=== PATIENT | female | born 1940 | race Caucasian/White ===

== ENCOUNTER 2022-10-15 11:25 | Emergency (ER) | payer MEDICARE ==
[2022-10-15 11:46] VITALS: TEMP 97.8
[2022-10-15] MEDS ORDERED: RX INFO: IV CONTRAST WAS GIVEN 1 EACH MISC MISCELLANE PRN (11:53)
[2022-10-15 13:03] LABS: Albumin 3.9 g/dL (3.5-5.0); Calcium 9.1 mg/dL (8.4-10.2); Potassium 3.2 mmol/L (3.5-5.1); Total Bilirubin 0.4 mg/dL (0.2-1.3); Total Protein 6.5 g/dL (6.3-8.2)
[2022-10-15 13:08] LABS: Basophils # (A) 0.1 k/uL (0-0.2); Basophils % (A) 1 %; Eosinophils # (A) 0.2 k/uL (0-0.7); Eosinophils % (A) 2 %; HCT 32.6 % (34.0-46.0); HGB 10.3 gm/dL (11.4-16.0); Hypochromasia Slight; Lymphocytes # (A) 1.1 k/uL (1.0-4.8); Lymphocytes % (A) 14 %; MCHC 31.6 g/dL (31.0-37.0); MCV 94.8 fL (80.0-100.0); Mean Platelet Volume 8.7; Monocytes # (A) 0.4 k/uL (0-1.0); Monocytes % (A) 5 %; Neutrophils # (A) 6.2 k/uL (1.3-7.7); Neutrophils % (A) 76 %; Platelet Count 198 k/uL (150-450); RBC 3.44 m/uL (3.80-5.40); RDW 13.6 % (11.5-15.5); WBC 8.1 k/uL (3.8-10.6)
--- NOTE | 2022-10-15 14:14 | CT ---
EXAMINATION TYPE: CT chest w con DATE OF EXAM: 10/15/2022 COMPARISON: None HISTORY: Lung Mass CT DLP: 300.3 mGycm Automated exposure control for dose reduction was used. TECHNIQUE: CT scan of the chest is performed with IV Contrast, patient injected with 80 mL of Isovue 300. MIP I mages are created on CT scanner and reviewed. 3D reconstructed images are created on an independent w orkstation and reviewed. FINDINGS: There is an 8 mm ill-defined nodule in the moderate right pleural effusion. There is no pneumothorax. There is a 3.5 cm soft tissue mass in the subcarinal region consistent with an enlarged lymph node. T here is a 2.2 cm mass in the proximal right hilum. There is a 15 mm lymph node anterolateral to the s uperior vena cava. The great vessels chest are normal. The heart is markedly enlarged and there is a moderate pericardial effusion. There is a 19 mm nodule in the left lobe of the thyroid gland. There is no axillary adenopathy. Limited scanning the upper abdomen reveals no gross abnormality. The osseous structures are intact and there is no focal lytic or blastic osseous abnormality. IMPRESSION: 1. 8 mm right upper lobe pulmonary nodule, moderate right pleural effusion, mediastinal and right hil ar adenopathy a combination of which is highly suspicious for malignancy. 2. Moderate pericardial effusion and marked cardiomegaly. 3. 19 mm left thyroid nodule..
[2022-10-15] MEDS ORDERED: ALBUTEROL NEBULIZED 2.5 MG/3 ML INHALATION STA (15:20)
[2022-10-15] MEDS ORDERED: IPRATROPIUM 0.5 MG/2.5 ML NEBU INHALATION STA (15:20)
[2022-10-15] MEDS ORDERED: dexAMETHasone 2 MG TAB PO STA (15:20)
--- NOTE | 2022-10-15 16:05 | ED ---
General Adult HPI - General Chief complaint: Recheck/Abnormal Lab/Rx Stated complaint: Mass on Lung, Sent by PCP Time Seen by Provider: 10/15/22 14:56 Source: patient Mode of arrival: wheelchair Limitations: no limitations - History of Present Illness Initial comments: This is an 81-year-old female with no past medical history presents emergency department because her primary care physician told her to come to the emergency department for a computed tomography scan of her chest as there was no sail finding of a lung mass on chest x-ray earlier in the week. The patient was accompanied by both of her daughters who stated that the patient is hard of hearing and also is a poor historian. Reported that the patient is at mild congestion noted of the last 2 months and was being seen and followed by the primary care physician who did a chest x-ray Tuesday. This chest x-ray showed a mass in the upper lung and it was advised by the primary care physician for the patient to come to the emergency department for a CAT scan of her chest because "it was going to take time to get the chest x-ray and because the weekend it would be a week or 2 before they get results." The patient herself would not be in the emergency department if it was not for the recommendation of the primary care physician. The patient denied of any increased shortness of breath or difficulty in breathing. The patient was resting in bed comfortably without any complaints at this time. The patient denied any fevers and chills. - Related Data Previous Rx's Medication Instructions Recorded Albuterol Inhaler [Ventolin Hfa 1 - 2 puff INHALATION Q6H PRN #1 10/15/22 Inhaler] kit Albuterol Nebulized [Ventolin 5 mg INHALATION Q4H PRN 8 Days 10/15/22 Nebulized] #150 ml dexAMETHasone [Decadron] 10 mg PO ONCE #2.5 tab 10/15/22 Allergies Allergy/AdvReac Type Severity Reaction Status Date / Time No Known Allergies Allergy Verified 10/15/22 11:42 Review of Systems ROS Statement: Those systems with pertinent positive or pertinent negative responses have been documented in the HPI. ROS Other: All systems not noted in ROS Statement are negative. Past Medical History Past Medical History: Hyperlipidemia, Hypertension, Thyroid Disorder History of Any Multi-Drug Resistant Organisms: None Reported Past Surgical History: Back Surgery, Orthopedic Surgery Smoking Status: Former smoker Past Alcohol Use History: None Reported Past Drug Use History: None Reported General Exam Limitations: no limitations General appearance: alert, in no apparent distress Head exam: Present: atraumatic, normocephalic, normal inspection Eye exam: Present: normal appearance, PERRL Pupils: Present: normal accommodation ENT exam: Present: normal exam, normal oropharynx, mucous membranes moist Neck exam: Present: normal inspection, full ROM Respiratory exam: Present: wheezes (Bilateral expiratory wheezes heard with mild rhonchi) Cardiovascular Exam: Present: regular rate, normal rhythm, normal heart sounds GI/Abdominal exam: Present: soft, normal bowel sounds Extremities exam: Present: normal inspection, full ROM Back exam: Present: normal inspection, full ROM Neurological exam: Present: alert, oriented X3, CN II-XII intact Psychiatric exam: Present: normal affect, normal mood Skin exam: Present: warm, dry Course Vital Signs 10/15/22 10/15/22 10/15/22 11:42 14:33 15:35 Temperature 97.8 F Pulse Rate 66 78 80 Respiratory 16 20 20 Rate Blood Pressure 154/68 145/72 O2 Sat by Pulse 98 99 Oximetry 10/15/22 10/15/22 15:53 16:15 Temperature Pulse Rate 84 67 Respiratory 16 Rate Blood Pressure 134/76 O2 Sat by Pulse 96 Oximetry Medical Decision Making - Medical Decision Making The patient was seen and evaluated in the emergency department. Physical exam, the patient was resting in bed comfortably without any pain or complaints. The patient did have her computed tomography scan of the chest ordered in triage and showed a millimeter right upper lobe pulmonary nodule, moderate right pleural effusion, mediastinal and right hilar adenopathy which a combination of which is highly suspicious for malignancy. There was also moderate pericardial effusion and marked cardiomegaly. The patient and her daughters were told these results. Due to the patient's examination on auscultation, the patient did receive a breathing treatment of 10 mg of albuterol, 1 mg of Atrovent and 10 mg of Decadron by mouth. On my reevaluation, the patient had complete resolution of her wheezing and had improvement of her breathing. The patient's daughter as well as the patient were offered admission however stated that they would prefer to be seen as an outpatient and did not want to be admitted to the hospital. The patient stated that she would not of been in the emergency department if it was not for the instructions to come get a computed tomography scan. The patient stated that she did not have any increased work of breathing, shortness of breath or difficulty with exertion. The patient as well as her daughters were given strict return precautions including increasing shortness of breath, difficulty in breathing, weakness as well as any chest pain or palpitations. They were advised that there was increasing fluid in the right lung as well as around the heart and that any change in symptoms would warrant further investigation at admission. They were given follow-up instructions to the oncologist as well as her primary care physician. The patient was also given prescription for albuterol inhaler and refill of her albuterol nebulizer and a second dose of Decadron. Both of the patient's daughters as well as the patient were understanding of these instructions and all their questions were answered appropriately. The patient was discharged home in stable condition with her daughters. - Lab Data Result diagrams: 10/15/22 12:10/15/22 12: Lab Results 10/15/22 10/15/22 Range/Units 12: 12:27 WBC 8.1 (3.8-10.6) k/uL RBC 3.44 L (3.80-5.40) m/uL Hgb 10.3 L (11.4-16.0) gm/dL Hct 32.6 L (34.0-46.0) % MCV 94.8 (80.0-100.0) fL MCH 30.0 (25.0-35.0) pg MCHC 31.6 (31.0-37.0) g/dL RDW 13.6 (11.5-15.5) % Plt Count 198 (150-450) k/uL MPV 8.7 Neutrophils % 76 % Lymphocytes % 14 % Monocytes % 5 % Eosinophils % 2 % Basophils % 1 % Neutrophils # 6.2 (1.3-7.7) k/uL Lymphocytes # 1.1 (1.0-4.8) k/uL Monocytes # 0.4 (0-1.0) k/uL Eosinophils # 0.2 (0-0.7) k/uL Basophils # 0.1 (0-0.2) k/uL Hypochromasia Slight Sodium 142 (137-145) mmol/L Potassium 3.2 L (3.5-5.1) mmol/L Chloride 112 H (98-107) mmol/L Carbon Dioxide 23 (22-30) mmol/L Anion Gap 7 mmol/L BUN 33 H (7-17) mg/dL Creatinine 1.45 H (0.52-1.04) mg/dL Est GFR (CKD-EPI)AfAm 39 (>60 ml/min/1.73 sqM) Est GFR (CKD-EPI)NonAf 34 (>60 ml/min/1.73 sqM) Glucose 85 (74-99) mg/dL Calcium 9.1 (8.4-10.2) mg/dL Total Bilirubin 0.4 (0.2-1.3) mg/dL AST 19 (14-36) U/L ALT 16 (4-34) U/L Alkaline Phosphatase 94 (38-126) U/L Total Protein 6.5 (6.3-8.2) g/dL Albumin 3.9 (3.5-5.0) g/dL Disposition Clinical Impression: Chest mass, Wheezing, Pleural effusion, Pericardial effusion Disposition: HOME SELF-CARE Condition: Stable Instructions (If sedation given, give patient instructions): Pleural Effusion (DC), Pericardial Effusion (ED), Wheezing (ED) Prescriptions: dexAMETHasone [Decadron] 10 mg PO ONCE #2.5 tab Albuterol Inhaler [Ventolin Hfa Inhaler] 1 - 2 puff INHALATION Q6H PRN #1 kit PRN Reason: Shortness Of Breath Or Wheezing Albuterol Nebulized [Ventolin Nebulized] 5 mg INHALATION Q4H PRN 8 Days #150 ml PRN Reason: Shortness Of Breath Or Wheezing Is patient prescribed a controlled substance at d/c from ED?: No Referrals: Norma Hidalgo DO [Primary Care Provider] - 1-2 days Rony Barry MD [STAFF PHYSICIAN] - 1-2 days Time of Disposition: 16:05
[2022-10-15 16:16] VITALS: BP 134/76; PULSE 67; RESP 16
== END 2022-10-15 16:16 | disposition home or self-care (01) ==
LOC: EC 11:25
DX: R22.2 Localized swelling, mass and lump, trunk (principal); I10 Essential (primary) hypertension; Z87.891 Personal history of nicotine dependence
CPT/HCPCS: 36415; 94640; 80053; 85025; 71260; 99285; J8540; Q9967

== ENCOUNTER 2022-10-17 01:38 | Inpatient (IN) | payer MEDICARE ==
[2022-10-17] MEDS ORDERED: SODIUM CHLORIDE 0.9% 1,000 ML IV STA (01:56)
--- NOTE | 2022-10-17 02:00 | ED ---
SOB HPI - General Chief Complaint: Shortness of Breath Stated Complaint: Difficulty Breathing Time Seen by Provider: 10/17/22 01:52 Source: patient, RN notes reviewed, old records reviewed Mode of arrival: ambulatory Limitations: no limitations - History of Present Illness Initial Comments: This is an 81-year-old female DF for evaluation presents today for evaluation regards to shortness of breath severe. Unable to lay down flat. Diagnosed with some fluid in the lungs recently. Patient having increasing apparently fluid on lungs today with increasing wheezing per family. Patient's brought in for evaluation. Lifelong smoker history of dementia unable to provide history MD Complaint: shortness of breath, cough, "asthma attack", anxiety (dementia) -: days(s) Severity: moderate Severity scale (1-10): 7 Quality: dull Consistency: constant Improves With: rest Worsens With: lying flat, exertion, movement Known History Of: COPD, asthma, congestive heart failure Context: recent URI, recent illness, other (recent LungCA) Associated Symptoms: cough, sputum production Treatments Prior to Arrival: oxygen - Related Data Previous Rx's Medication Instructions Recorded Albuterol Inhaler [Ventolin Hfa 1 - 2 puff INHALATION Q6H PRN #1 10/15/22 Inhaler] kit Albuterol Nebulized [Ventolin 5 mg INHALATION Q4H PRN 8 Days 10/15/22 Nebulized] #150 ml dexAMETHasone [Decadron] 10 mg PO ONCE #2.5 tab 10/15/22 Allergies Allergy/AdvReac Type Severity Reaction Status Date / Time No Known Allergies Allergy Verified 10/17/22 01:41 Review of Systems ROS Statement: Those systems with pertinent positive or pertinent negative responses have been documented in the HPI. ROS Other: All systems not noted in ROS Statement are negative. Past Medical History Past Medical History: Dementia, Hearing Disorder / Deafness, Hyperlipidemia, Hypertension, Thyroid Disorder History of Any Multi-Drug Resistant Organisms: None Reported Past Surgical History: Back Surgery, Orthopedic Surgery Past Psychological History: No Psychological Hx Reported Smoking Status: Former smoker Past Alcohol Use History: None Reported Past Drug Use History: None Reported General Exam Limitations: no limitations Course Vital Signs 10/17/22 01:41 Temperature 98.2 F Pulse Rate 62 Respiratory 45 H Rate Blood Pressure 163/80 O2 Sat by Pulse 94 L Oximetry - Reevaluation(s) Reevaluation #1: 10/17/22 03:31 Attic record is reviewed Reevaluation #2: 10/17/22 03:32 Patient symptoms are improving Reevaluation #3: 10/17/22 03:32 Patient family informed of results and questions answered - Consultations Consultation #1: Spoke with sound physicians who agree to admit the patient Medical Decision Making - Medical Decision Making 81 female will be admitted for evaluation, significant symptoms of breathing issues heart issues including CHF COPD and lung cancer - Lab Data Result diagrams: 10/17/22 02:11 10/17/22 02:11 Lab Results 10/17/22 10/17/22 10/17/22 Range/Units 02:11 02:11 02:11 WBC 8.8 (3.8-10.6) k/uL RBC 3.46 L (3.80-5.40) m/uL Hgb 10.4 L (11.4-16.0) gm/dL Hct 32.7 L (34.0-46.0) % MCV 94.6 (80.0-100.0) fL MCH 30.2 (25.0-35.0) pg MCHC 31.9 (31.0-37.0) g/dL RDW 13.2 (11.5-15.5) % Plt Count 183 (150-450) k/uL MPV 8.5 Neutrophils % 82 % Lymphocytes % 7 % Monocytes % 9 % Eosinophils % 1 % Basophils % 0 % Neutrophils # 7.3 (1.3-7.7) k/uL Lymphocytes # 0.6 L (1.0-4.8) k/uL Monocytes # 0.8 (0-1.0) k/uL Eosinophils # 0.1 (0-0.7) k/uL Basophils # 0.0 (0-0.2) k/uL Hypochromasia Slight PT 12.1 H (9.0-12.0) sec INR 1.1 (<1.2) APTT 23.0 (22.0-30.0) sec Sodium 138 (137-145) mmol/L Potassium 3.5 (3.5-5.1) mmol/L Chloride 110 H (98-107) mmol/L Carbon Dioxide 24 (22-30) mmol/L Anion Gap 4 mmol/L BUN 32 H (7-17) mg/dL Creatinine 1.17 H (0.52-1.04) mg/dL Est GFR (CKD-EPI)AfAm 50 (>60 ml/min/1.73 sqM) Est GFR (CKD-EPI)NonAf 44 (>60 ml/min/1.73 sqM) Glucose 98 (74-99) mg/dL Plasma Lactic Acid Frantz (0.7-2.0) mmol/L Calcium 9.2 (8.4-10.2) mg/dL Magnesium 2.5 H (1.6-2.3) mg/dL Total Bilirubin 0.4 (0.2-1.3) mg/dL AST 25 (14-36) U/L ALT 18 (4-34) U/L Alkaline Phosphatase 93 (38-126) U/L Troponin I (0.000-0.034) ng/mL NT-Pro-B Natriuret Pep pg/mL Total Protein 6.8 (6.3-8.2) g/dL Albumin 4.0 (3.5-5.0) g/dL 10/17/22 10/17/22 10/17/22 Range/Units 02:11 02:11 02:55 WBC (3.8-10.6) k/uL RBC (3.80-5.40) m/uL Hgb (11.4-16.0) gm/dL Hct (34.0-46.0) % MCV (80.0-100.0) fL MCH (25.0-35.0) pg MCHC (31.0-37.0) g/dL RDW (11.5-15.5) % Plt Count (150-450) k/uL MPV Neutrophils % % Lymphocytes % % Monocytes % % Eosinophils % % Basophils % % Neutrophils # (1.3-7.7) k/uL Lymphocytes # (1.0-4.8) k/uL Monocytes # (0-1.0) k/uL Eosinophils # (0-0.7) k/uL Basophils # (0-0.2) k/uL Hypochromasia PT (9.0-12.0) sec INR (<1.2) APTT (22.0-30.0) sec Sodium (137-145) mmol/L Potassium (3.5-5.1) mmol/L Chloride (98-107) mmol/L Carbon Dioxide (22-30) mmol/L Anion Gap mmol/L BUN (7-17) mg/dL Creatinine (0.52-1.04) mg/dL Est GFR (CKD-EPI)AfAm (>60 ml/min/1.73 sqM) Est GFR (CKD-EPI)NonAf (>60 ml/min/1.73 sqM) Glucose (74-99) mg/dL Plasma Lactic Acid Frantz 0.8 (0.7-2.0) mmol/L Calcium (8.4-10.2) mg/dL Magnesium (1.6-2.3) mg/dL Total Bilirubin (0.2-1.3) mg/dL AST (14-36) U/L ALT (4-34) U/L Alkaline Phosphatase (38-126) U/L Troponin I <0.012 (0.000-0.034) ng/mL NT-Pro-B Natriuret Pep 8080 pg/mL Total Protein (6.3-8.2) g/dL Albumin (3.5-5.0) g/dL - EKG Data -: EKG Interpreted by Me (EKG is A. fib 77 QRS 89 QTc 408) - Radiology Data Radiology results: report reviewed (Chest x-rays positive for pulmonary edema pleural effusion), image reviewed Disposition Clinical Impression: Congestive heart failure, Acute pulmonary edema, Asthma with acute exacerbation, Acute exacerbation of chronic obstructive pulmonary disease, Pleural effusion, Pericardial effusion, Wheezing Disposition: ADMITTED IP TO THIS HOSP Condition: Fair Is patient prescribed a controlled substance at d/c from ED?: No Referrals: Norma Hidalgo DO [Primary Care Provider] - 1-2 days Time of Disposition: 03:30
[2022-10-17 02:35] LABS: Basophils % (A) 0 %; Eosinophils # (A) 0.1 k/uL (0-0.7); Eosinophils % (A) 1 %; HCT 32.7 % (34.0-46.0); HGB 10.4 gm/dL (11.4-16.0); Hypochromasia Slight; Lymphocytes # (A) 0.6 k/uL (1.0-4.8); Lymphocytes % (A) 7 %; MCH 30.2 pg (25.0-35.0); MCHC 31.9 g/dL (31.0-37.0); MCV 94.6 fL (80.0-100.0); Mean Platelet Volume 8.5; Monocytes # (A) 0.8 k/uL (0-1.0); Monocytes % (A) 9 %; Neutrophils # (A) 7.3 k/uL (1.3-7.7); Neutrophils % (A) 82 %; Platelet Count 183 k/uL (150-450); RBC 3.46 m/uL (3.80-5.40); RDW 13.2 % (11.5-15.5); WBC 8.8 k/uL (3.8-10.6)
[2022-10-17 02:48] LABS: INR 1.1 (<1.2); Prothrombin Time 12.1 sec (9.0-12.0)
--- NOTE | 2022-10-17 02:49 | XR ---
EXAMINATION TYPE: XR chest 1V portable DATE OF EXAM: 10/17/2022 COMPARISON: NONE HISTORY: Cough TECHNIQUE: Single view FINDINGS: Heart is enlarged. There is coarsening of the interstitial markings. There is slight blunti ng of the costophrenic angles. There are no hilar masses. Bony thorax is intact. IMPRESSION: Cardiomegaly and mild pulmonary fibrotic changes. Mild heart failure is also likely.
[2022-10-17 02:53] LABS: Calcium 9.2 mg/dL (8.4-10.2); Magnesium 2.5 mg/dL (1.6-2.3); Total Bilirubin 0.4 mg/dL (0.2-1.3); Total Protein 6.8 g/dL (6.3-8.2)
[2022-10-17 02:57] LABS: Potassium 3.5 mmol/L (3.5-5.1)
[2022-10-17] MEDS ORDERED: IPRATROPIUM-ALBUTEROL 3 ML NEB INHALATION STA (03:25)
[2022-10-17] MEDS: IPRATROPIUM-ALBUTEROL 3 ML NEB INHALATION SCH ×5 (04:04→20:10)
[2022-10-17] MEDS: FUROSEMIDE 10 MG/ML 4 ML VIAL IV SCH ×2 (04:17→15:14)
[2022-10-17] MEDS ORDERED: HEPARIN SODIUM 1,000 UN/ML (10ML VL) IV PRN (08:47)
[2022-10-17] MEDS ORDERED: HEPARIN SODIUM 1,000 UN/ML (10ML VL) IV ONE (08:47)
--- NOTE | 2022-10-17 08:47 | P.CRDCN ---
History of Present Illness History of present illness: HISTORY OF PRESENTING ILLNESS Patient is a pleasant 81-year-old female with history of questionable atrial fibrillation, recent diagnosis of pulmonary nodules and mass. She states she follows with a page makeup system operator at [facility]. She has been having a raspy cough and shortness breath for last 2-3 months. She therefore has undergone workup with prior x-ray showing concern of pulmonary mass and therefore had outpatient CAT scan performed 10/15/2022. CAT scan showed multiple nodules concerning for malignancy. Additionally showed moderate pericardial effusion and pleural effusion. She went home however developed worsening dyspnea and therefore presented back to emergency department. EKG showed atrial fibrillation and patient and grandson unsure if this is something that is chronic. States she may have been on Xarelto in the past. No issues with hematochezia or melena. She was additionally having some heartburn sensation however currently improved. REVIEW OF SYSTEMS At the time of my exam: CONSTITUTIONAL: Denies fever or chills. CARDIOVASCULAR: +chest pain, +shortness of breath, no orthopnea, PND or palpitations. RESPIRATORY: Denies cough. GASTROINTESTINAL: Denies abdominal pain, diarrhea, constipation, nausea or vomiting. MUSCULOSKELETAL: Denies myalgias. NEUROLOGIC: Denies numbness, tingling or weakness. ENDOCRINE: Denies fatigue, weight change, polydipsia or polyurina. GENITOURINARY: Denies burning, hematuria or urgency with micturation. HEMATOLOGIC: Denies history of anemia or bleeding. PHYSICAL EXAMINATION Vital signs reviewed. CONSTITUTIONAL: No apparent distress. HEENT: Head is normocephalic. Pupils are equal, round. Sclerae anicteric. Mucous membranes of the mouth are moist. No JVD. No carotid bruit. CHEST EXAMINATION: Rales and rhonchi throughout HEART EXAMINATION: Regular rate and rhythm. S1, S2 heard. No murmurs, gallops or rub. ABDOMEN: Soft, nontender. Positive bowel sounds. EXTREMITIES: 2+ peripheral pulses, no lower extremity edema and no calf tenderness. NEUROLOGIC EXAMINATION: Patient is awake, alert and oriented x3. ASSESSMENT 1. Acute on chronic respiratory failure 2. Acute on chronic heart failure, unclear systolic versus diastolic 3. Persistent atrial fibrillation, questionable history in the past 4. Pulmonary lymphadenopathy rule out malignancy 5. Pericardial effusion 6. Mild dementia 7. Extremely hard of hearing PLAN Significant amount of respiratory status related to heart failure. Continue with IV Lasix. Check 2-D echo. Monitor ins and outs and creatinine. Patient does have pericardial effusion and possible malignancy and possibility of malignant pericardial effusion. No significant signs or symptoms of tamponade. Start heparin drip for Afib and eventually change to NOAC however patient will likely need biopsy. Further recs to follow. Past Medical History Past Medical History: Dementia, Hearing Disorder / Deafness, Hyperlipidemia, Hypertension, Thyroid Disorder History of Any Multi-Drug Resistant Organisms: None Reported Past Surgical History: Back Surgery, Orthopedic Surgery Past Psychological History: No Psychological Hx Reported Smoking Status: Former smoker Past Alcohol Use History: None Reported Past Drug Use History: None Reported Medications and Allergies Home Medications Medication Instructions Recorded Confirmed Type Albuterol Inhaler [Ventolin Hfa 1 - 2 puff INHALATION Q6H PRN #1 10/15/22 Rx Inhaler] kit Albuterol Nebulized [Ventolin 5 mg INHALATION Q4H PRN 8 Days 10/15/22 Rx Nebulized] #150 ml dexAMETHasone [Decadron] 10 mg PO ONCE #2.5 tab 10/15/22 Rx Allergies Allergy/AdvReac Type Severity Reaction Status Date / Time No Known Allergies Allergy Verified 10/17/22 01:41 Physical Exam Vitals: Vital Signs Temp Pulse Resp BP Pulse Ox 10/17/22 07:44 70 10/17/22 07:30 64 10/17/22 06:45 61 22 151/83 100 10/17/22 04:35 68 10/17/22 04:21 66 18 167/81 100 10/17/22 01:41 98.2 F 62 45 H 163/80 94 L Intake and Output 10/16/22 10/17/22 10/17/22 22:59 06:59 14:59 Output Total 1000 Balance -1000 Output: Urine 1000 Other: Weight 70.307 kg Results 10/17/22 02:11 10/17/22 02:11 Cardiac Enzymes 10/17/22 10/17/22 Range/Units 02:11 02:11 AST 25 (14-36) U/L Troponin I <0.012 (0.000-0.034) ng/mL Coagulation 10/17/22 Range/Units 02:11 PT 12.1 H (9.0-12.0) sec APTT 23.0 (22.0-30.0) sec CBC 10/17/22 Range/Units 02:11 WBC 8.8 (3.8-10.6) k/uL RBC 3.46 L (3.80-5.40) m/uL Hgb 10.4 L (11.4-16.0) gm/dL Hct 32.7 L (34.0-46.0) % Plt Count 183 (150-450) k/uL Comprehensive Metabolic Panel 10/17/22 Range/Units 02:11 Sodium 138 (137-145) mmol/L Potassium 3.5 (3.5-5.1) mmol/L Chloride 110 H (98-107) mmol/L Carbon Dioxide 24 (22-30) mmol/L BUN 32 H (7-17) mg/dL Creatinine 1.17 H (0.52-1.04) mg/dL Glucose 98 (74-99) mg/dL Calcium 9.2 (8.4-10.2) mg/dL AST 25 (14-36) U/L ALT 18 (4-34) U/L Alkaline Phosphatase 93 (38-126) U/L Total Protein 6.8 (6.3-8.2) g/dL Albumin 4.0 (3.5-5.0) g/dL Current Medications Generic Name Dose Route Start Last Admin Trade Name Freq PRN Reason Stop Dose Admin Albuterol/Ipratropium 3 ml 10/17/22 04:00 10/17/22 07:22 Ipratropium-Albuterol 3 Ml Neb INHALATION 3 ml RT-Q4H SARAHY Administration Furosemide 40 mg 10/17/22 03:30 10/17/22 04:17 Furosemide 10 Mg/Ml 4 Ml Vial IV 40 mg Q12H SARAHY Administration Sodium Chloride 1,000 mls @ 130 mls/hr 10/17/22 01:56 10/17/22 04:23 Saline 0.9% IV 10/17/22 09:37 Not Given .Q7H42M STA Intake and Output 10/16/22 10/17/22 10/17/22 22:59 06:59 14:59 Output Total 1000 Balance -1000 Output: Urine 1000 Other: Weight 70.307 kg 10/17/22 02:11 10/17/22 02:11
[2022-10-17] MEDS: HEPARIN SOD,PORK IN 0.45% NACL 25,000 UNIT in 0.45% NACL 1 250ML.BAG IV SCH (09:10)
[2022-10-17] MEDS ORDERED: NALOXONE 0.4 MG/ML 1 ML VIAL IV PRN (12:45)
--- NOTE | 2022-10-17 12:46 | P.CNPUL ---
History of Present Illness Consult date: 10/17/22 Reason for consult: dyspnea, lung mass History of present illness: 81-year-old female patient with known history of dementia. The patient lives with her daughter and son-in-law. The patient has been noted to have progressive worsening in shortness of breath. The patient was having too dyspnea, chest tightness and wheezing. She is an ex-smoker and she quit smoking approximately 6 years ago. She has had several visitation with her primary care physician ultimately she was given a CAT scan of the chest yesterday and the CAT scan showed COPD, small right-sided pleural effusion, small pericardial effusion anteriorly and posteriorly, and there was evidence of a fairly large subcarinal mass with heterogeneous density within the subcarinal opacity. This was measuring around 3.5 cm in size. There was another 2.2 cm mass in the proximal right hilum in addition to that there are other smaller mediastinal lymph nodes. The findings are highly suggestive of primary bronchogenic carcinoma. The patient has a 19 mm left thyroid nodule. At the time of my evaluation, the patient was unable to give me any history. She is having significant impairment in cognitive functions. However, it was obvious that she was actively bronchus spastic and wheezing congested. Her swallow mechanism is adequate. Creatinine was at 1.4 and improved with hydration and is down to 1.1. The white suppository 0.8 with a hemoglobin of 14 and the patient has a proBNP level of 8000, negative troponins, normal liver function tests. No angina. No palpit ation. No chest pain. No other complaints otherwise for now. The patient was found to be in atrial fibrillation also. She hasn't. Hearing. She is currently on IV heparin. In the management of atrial fibrillations per cardiology. She was given Lasix. Review of Systems ROS unobtainable: due to mental status Past Medical History Past Medical History: Atrial Fibrillation, Dementia, Hearing Disorder / Deafness, Hyperlipidemia, Hypertension History of Any Multi-Drug Resistant Organisms: None Reported Past Surgical History: Back Surgery, Orthopedic Surgery Past Anesthesia/Blood Transfusion Reactions: No Reported Reaction Past Psychological History: No Psychological Hx Reported Smoking Status: Former smoker Past Alcohol Use History: None Reported Past Drug Use History: None Reported Medications and Allergies Home Medications Medication Instructions Recorded Confirmed Type Albuterol Inhaler [Ventolin Hfa 1 - 2 puff INHALATION RT-Q6H PRN 10/17/22 10/17/22 History Inhaler] Amoxic-Pot Clav 500-125 mg 1 tab PO TID 10/17/22 10/17/22 History [Augmentin 500-125 mg] Aspirin EC [Ecotrin Low Dose] 81 mg PO DAILY 10/17/22 10/17/22 History Donepezil [Aricept] 5 mg PO DAILY 10/17/22 10/17/22 History Latanoprost [Latanoprost 0.005%] 1 drop BOTH EYES HS 10/17/22 10/17/22 History Methenamine Hippurate 1 gm PO DAILY 10/17/22 10/17/22 History Mirtazapine 15 mg PO HS 10/17/22 10/17/22 History Montelukast [Singulair] 10 mg PO DAILY 10/17/22 10/17/22 History Sertraline [Zoloft] 100 mg PO DAILY 10/17/22 10/17/22 History Simvastatin [Zocor] 20 mg PO HS 10/17/22 10/17/22 History Timolol 0.5% Ophth Soln [Timoptic 1 drop BOTH EYES HS 10/17/22 10/17/22 History 0.5% Ophth Soln] amLODIPine [Norvasc] 7.5 mg PO DAILY 10/17/22 10/17/22 History atenoloL [Tenormin] 50 mg PO DAILY 10/17/22 10/17/22 History predniSONE 10 mg PO DAILY 10/17/22 10/17/22 History Allergies Allergy/AdvReac Type Severity Reaction Status Date / Time No Known Allergies Allergy Verified 10/17/22 11:49 Physical Exam Vitals: Vital Signs Temp Pulse Pulse Resp BP BP Pulse Ox 10/17/22 11:51 99.3 F 69 20 155/85 98 10/17/22 11:35 62 10/17/22 11:25 58 L 10/17/22 09:00 68 20 148/78 98 10/17/22 07:44 70 10/17/22 07:30 64 10/17/22 06:45 61 22 151/83 100 10/17/22 04:35 68 10/17/22 04:21 66 18 167/81 100 10/17/22 01:41 98.2 F 62 45 H 163/80 94 L Intake and Output 10/16/22 10/17/22 10/17/22 22:59 06:59 14:59 Intake Total 50 Output Total 1000 1000 Balance -1000 -950 Intake: Oral 50 Output: Urine 1000 1000 Other: Weight 70.307 kg 70.307 kg CONSTITUTIONAL: No apparent distress. Head exam was generally normal. There was no scleral icterus or corneal arcus. Mucous membranes were moist. HEENT: Head is normocephalic. Pupils are equal, round. Sclerae anicteric. Mucous membranes of the mouth are moist. No JVD. No carotid bruit. CHEST EXAMINATION: Diminished breath sounds along with diffuse expiratory wheezing throughout the lung field bilaterally and the patient is a prolongation of the exhalation phase of breathing HEART EXAMINATION: Irregular rate and rhythm. S1, S2 heard. No murmurs, gallops or rub. ABDOMEN: Soft, nontender. Positive bowel sounds. EXTREMITIES: 2+ peripheral pulses, no lower extremity edema and no calf tenderness. NEUROLOGIC EXAMINATION: Patient is awake, alert and the patient has significant impairment in cognitive functions. She has advanced dementia. She is moving all 4 extremities. Examination of the skin revealed no evidence of significant rashes, suspicious appearing nevi or other concerning lesions. Results - Laboratory Findings CBC and BMP: 10/17/22 02:11 10/17/22 02:11 PT/INR, D-dimer PT 12.1 sec (9.0-12.0) H 10/17/22 02:11 INR 1.1 (<1.2) 10/17/22 02:11 Abnormal lab findings: Abnormal Labs 10/17/22 10/17/22 10/17/22 02:11 02:11 02:11 RBC 3.46 L Hgb 10.4 L Hct 32.7 L Lymphocytes # 0.6 L PT 12.1 H Chloride 110 H BUN 32 H Creatinine 1.17 H Magnesium 2.5 H - Diagnostic Findings Chest x-ray: image reviewed CT scan - chest: image reviewed Assessment and Plan Plan: Acute COPD exacerbation with secondary dyspnea, bronchospasm and wheeze. Rule out viral infection. We'll screen the patient for viral infection including Covid 19, RSV and influenza. The patient has been vaccinated for Covid 19 in the past. No airspace disease Right hilar mass measuring 2.2 cm in addition to a fairly large subcarinal lymph node/mass measuring 3.5 cm in size, highly suggestive of primary bronchogenic cancer of the lung Small right-sided pleural effusion Small to moderate-sized pericardial effusion Shortness of breath secondary to above Chronic smoker and the patient quit smoking approximately 6 years ago Chronic atrial fibrillation Suspect congestion heart failure with an elevated proBNP level, responding to diuretics Acute kidney injury, recovering Advanced dementia with impairment of the cognitive functions. Impaired hearing Hypertension Plan Will optimize his COPD. We'll give the patient DuoNeb about treatments [id number]. We'll start her on IV Solu-Medrol 60 mg every 6 hours. Was started on empiric antibiotic coverage with Levaquin 500 mg by mouth on a daily basis. Also, we'll do the viral screen and check the patient for influenza, RSV and Covid 19 by PCR.. We'll check a sputum Gram stain and culture. Check a pro-calcitonin level. Agree on diuretics for now. Echocardiogram is to follow. In terms of her lung mass, this is highly suggestive for malignancy. This may be diagnosed via bronchoscopy and endobronchial ultrasound. However, it may not change our treatment course specially the patient has advanced dementia. We have not made a final decision whether a biopsy will be worthwhile. Nevertheless, the daughter understands that this is highly suspicious for an underlying cancer. We left the issue of biopsying this mass to a later stage once this patient's overall cardiac and pulmonary status is further analyzed. Cardiology will see the patient. We'll give her an echocardiogram.
--- NOTE | 2022-10-17 13:07 | P.HPIM ---
History of Present Illness H&P Date: 10/17/22 Chief Complaint: sob 81-year-old female with history of dementia, hypertension and depression presented to emergency department because of worsening cough, congestion and rattling of the chest over the past month. History taken from grand son on the bedside, patient unable to provide history due to dementia. She was evaluated in the emergency department a few days ago, had chest CAT scan performed 10/15/2022 and that showed 8 mm nodule in the right upper lobe, moderate right pleural effusion, mediastinal and right hilar adenopathy, moderate pericardial effusion and cardiomegaly. These findings were suspicious for malignancy. According to her grandson at the bedside she has been having worsening nonproductive cough, dyspnea and chills for the past several weeks. She has also been experiencing retrosternal chest burning. No fevers. Grandson also stated that yesterday she had flushed and swollen face which is currently resolved. According to her grandson she had a routine checkup at her [employer] office a few months ago, had a stress test that was negative. She is an ex smoker, quit smoking 7 years ago. Evaluation in the emergency department revealed temperature 99.3, rest of vitals are okay, EKG showed atrial fibrillation, new finding. Labs showed white count 8.8, hemoglobin 10.4, hematocrit 32, platelet count 183, sodium 138, potassium 3.5, chloride 110, bicarbonate 24, BUN 32, creatinine 1.17, glucose 98, troponin negative, LFTs were okay. BNP 8080. Review of Systems Complete review of system performed, pertinent positives per HPI, otherwise negative. Past Medical History Past Medical History: Dementia, Hearing Disorder / Deafness, Hyperlipidemia, Hypertension, Thyroid Disorder History of Any Multi-Drug Resistant Organisms: None Reported Past Surgical History: Back Surgery, Orthopedic Surgery Past Psychological History: No Psychological Hx Reported Smoking Status: Former smoker Past Alcohol Use History: None Reported Past Drug Use History: None Reported Medications and Allergies Home Medications Medication Instructions Recorded Confirmed Type Amoxic-Pot Clav 500-125 mg 1 tab PO TID 10/17/22 10/17/22 History [Augmentin 500-125 mg] Aspirin EC [Ecotrin Low Dose] 81 mg PO DAILY 10/17/22 10/17/22 History Donepezil [Aricept] 5 mg PO DAILY 10/17/22 10/17/22 History Latanoprost [Latanoprost 0.005%] 1 drop BOTH EYES HS 10/17/22 10/17/22 History Montelukast [Singulair] 10 mg PO DAILY 10/17/22 10/17/22 History RX: Albuterol Inhaler [Ventolin 1 - 2 puff INHALATION RT-Q6H PRN 10/17/22 10/17/22 History Hfa Inhaler] RX: Methenamine Hippurate 1 gm PO DAILY 10/17/22 10/17/22 History RX: Mirtazapine 15 mg PO HS 10/17/22 10/17/22 History RX: predniSONE 10 mg PO DAILY 10/17/22 10/17/22 History Sertraline [Zoloft] 100 mg PO DAILY 10/17/22 10/17/22 History Simvastatin [Zocor] 20 mg PO HS 10/17/22 10/17/22 History Timolol 0.5% Ophth Soln [Timoptic 1 drop BOTH EYES HS 10/17/22 10/17/22 History 0.5% Ophth Soln] amLODIPine [Norvasc] 7.5 mg PO DAILY 10/17/22 10/17/22 History atenoloL [Tenormin] 50 mg PO DAILY 10/17/22 10/17/22 History Allergies Allergy/AdvReac Type Severity Reaction Status Date / Time No Known Allergies Allergy Verified 10/17/22 11:49 Physical Exam Vitals: Vital Signs Temp Pulse Resp BP Pulse Ox 10/17/22 09:00 68 20 148/78 98 10/17/22 07:44 70 10/17/22 07:30 64 10/17/22 06:45 61 22 151/83 100 10/17/22 04:35 68 10/17/22 04:21 66 18 167/81 100 10/17/22 01:41 98.2 F 62 45 H 163/80 94 L Intake and Output 10/16/22 10/17/22 10/17/22 22:59 06:59 14:59 Output Total 1000 Balance -1000 Output: Urine 1000 Other: Weight 70.307 kg Constitutional: mild respiratory distress Eyes:Anicteric sclerae, moist conjunctiva, no lid-lag, PERRLA, ENMT: Oropharynx clear, no erythema, exudates. Hard of hearing. Neck: Supple, FROM, no masses, or JVD, No carotid bruits, No thyromegaly Lungs: Audible wheezes and rattling even without stethoscope. Clear to percussion, Normal respiratory effort, no accessory muscle use Cardiovascular: Irregular, No murmurs, gallops, or rubs, No peripheral edema Abdominal: Soft, Nontender, no guarding, rebound or rigidity, Normoactive bowel sounds, No hepatomegaly, No splenomegaly, No palpable mass Skin: Normal temperature, tone, texture, turgor, no induration, No subcutaneous nodules, No rash, lesions, No ulcers Extremities: No digital cyanosis, No clubbing, Pedal pulses intact and symmetrical, Radial pulses intact and symmetrical, No calf tenderness Neuro: General weakness, not focal. Results CBC & Chem 7: 10/17/22 02:11 10/17/22 02:11 Labs: Abnormal Lab Results - Last 24 Hours (Table) 10/17/22 10/17/22 10/17/22 Range/Units 02:11 02:11 02:11 RBC 3.46 L (3.80-5.40) m/uL Hgb 10.4 L (11.4-16.0) gm/dL Hct 32.7 L (34.0-46.0) % Lymphocytes # 0.6 L (1.0-4.8) k/uL PT 12.1 H (9.0-12.0) sec Chloride 110 H (98-107) mmol/L BUN 32 H (7-17) mg/dL Creatinine 1.17 H (0.52-1.04) mg/dL Magnesium 2.5 H (1.6-2.3) mg/dL Assessment and Plan Plan: Acute COPD exacerbation Screen the patient for viral infection including Covid 19, RSV and influenza. Check a sputum Gram stain and culture, procal DuoNeb treatments IV Solu-Medrol 60 mg every 6 hours. Empiric antibiotic coverage with Levaquin 500 mg by mouth on a daily Acute CHF Persistent trial fibrillation Seen by cardiology Started on heparin gtt. Started on diuresis Right hilar mass with mediastinal lymphadenoathy, Lung cancer likely D/w daughter on the phone if she would want to pursue aggressive diagnosis/treatment. Right-sided pleural effusion Pericardial effusion Likely due to malignancy Persistent trial fibrillation Seen by cardiology Started on heparin gtt. Acute kidney injury, Resolving Advanced dementia with impairment of the cognitive functions. Impaired hearing Hypertension Stable resume meds Admit to inpatient expected length of stay more than 2 midnights.
[2022-10-17] MEDS: methylPREDNISolone SOD SUCCI 125 MG/2 ML VIAL IV SCH ×3 (13:20→23:41)
[2022-10-17] MEDS ORDERED: LEVOFLOXACIN 500 MG TAB PO SCH (14:00)
[2022-10-17] MEDS: amLODIPine 2.5 MG TAB PO SCH (15:14)
[2022-10-17] MEDS: HALOPERIDOL LACTATE 5 MG/ML 1 ML VIAL IVP PRN (16:11)
--- NOTE | 2022-10-17 16:34 | P.CONS ---
History of Present Illness - Reason for Consult Consult date: 10/17/22 Lung Cancer - History of Present Illness Mrs Gutierrez is a poor historian who is unable to provide history due to dementia. We were asked to evaluate for likely new diagnosis of lung cancer. CAT scan performed 10/15/2022 and that showed 8 mm nodule in the right upper lobe, moderate right pleural effusion, mediastinal and right hilar adenopathy, moderate pericardial effusion and cardiomegaly. These findings were suspicious for malignancy. She complained of sob and chest burning and this brought her into ER. Review of Systems ROS unobtainable: due to mental status Past Medical History Past Medical History: Dementia, Hearing Disorder / Deafness, Hyperlipidemia, Hypertension, Thyroid Disorder History of Any Multi-Drug Resistant Organisms: None Reported Past Surgical History: Back Surgery, Orthopedic Surgery Past Anesthesia/Blood Transfusion Reactions: No Reported Reaction Past Psychological History: No Psychological Hx Reported Smoking Status: Former smoker Past Alcohol Use History: None Reported Past Drug Use History: None Reported Medications and Allergies Home Medications Medication Instructions Recorded Confirmed Type Albuterol Inhaler [Ventolin Hfa 1 - 2 puff INHALATION RT-Q6H PRN 10/17/2209/22 History Inhaler] Amoxic-Pot Clav 500-125 mg 1 tab PO TID 10/17/22 10/17/22 History [Augmentin 500-125 mg] Aspirin EC [Ecotrin Low Dose] 81 mg PO DAILY 10/17/22 10/17/22 History Donepezil [Aricept] 5 mg PO DAILY 10/17/22 10/17/22 History Latanoprost [Latanoprost 0.005%] 1 drop BOTH EYES HS 10/17/22 10/17/22 History Methenamine Hippurate 1 gm PO DAILY 10/17/22 10/17/22 History Mirtazapine 15 mg PO HS 10/17/22 10/17/22 History Montelukast [Singulair] 10 mg PO DAILY 10/17/22 10/17/22 History Sertraline [Zoloft] 100 mg PO DAILY 10/17/22 10/17/22 History Simvastatin [Zocor] 20 mg PO HS 10/17/22 10/17/22 History Timolol 0.5% Ophth Soln [Timoptic 1 drop BOTH EYES HS 10/17/22 10/17/22 History 0.5% Ophth Soln] amLODIPine [Norvasc] 7.5 mg PO DAILY 10/17/22 10/17/22 History atenoloL [Tenormin] 50 mg PO DAILY 10/17/22 10/17/22 History predniSONE 10 mg PO DAILY 10/17/22 10/17/22 History Allergies Allergy/AdvReac Type Severity Reaction Status Date / Time No Known Allergies Allergy Verified 10/17/22 11:49 Physical Exam Vitals: Vital Signs Temp Pulse Pulse Resp BP BP Pulse Ox 10/17/22 15:11 68 10/17/22 14:58 68 10/17/22 11:51 99.3 F 69 20 155/85 98 10/17/22 11:35 62 10/17/22 11:25 58 L 10/17/22 09:00 68 20 148/78 98 10/17/22 07:44 70 10/17/22 07:30 64 10/17/22 06:45 61 22 151/83 100 10/17/22 04:35 68 10/17/22 04:21 66 18 167/81 100 10/17/22 01:41 98.2 F 62 45 H 163/80 94 L Intake and Output 10/17/22 10/17/22 10/17/22 06:59 14:59 22:59 Intake Total 50 Output Total 1000 1000 Balance -1000 -950 Intake: Oral 50 Output: Urine 1000 1000 Other: Weight 70.307 kg 70.307 kg - Constitutional General appearance: cooperative, disheveled - EENT ENT: NA/AT - Neck Neck: normal ROM - Respiratory Respiratory: bilateral: diminished - Cardiovascular Rhythm: irregularly irregular - Gastrointestinal General gastrointestinal: soft - Integumentary Integumentary: pale - Musculoskeletal Musculoskeletal: generalized weakness Results CBC & Chem 7: 10/17/22 02:11 10/17/22 02:11 Labs: Abnormal Lab Results - Last 24 Hours (Table) 10/17/22 10/17/22 10/17/22 Range/Units 02:11 02:11 02:11 RBC 3.46 L (3.80-5.40) m/uL Hgb 10.4 L (11.4-16.0) gm/dL Hct 32.7 L (34.0-46.0) % Lymphocytes # 0.6 L (1.0-4.8) k/uL PT 12.1 H (9.0-12.0) sec APTT (22.0-30.0) sec Chloride 110 H (98-107) mmol/L BUN 32 H (7-17) mg/dL Creatinine 1.17 H (0.52-1.04) mg/dL Magnesium 2.5 H (1.6-2.3) mg/dL Influenza Type A (PCR) (Not Detectd) 10/17/22 10/17/22 Range/Units 13:25 14:43 RBC (3.80-5.40) m/uL Hgb (11.4-16.0) gm/dL Hct (34.0-46.0) % Lymphocytes # (1.0-4.8) k/uL PT (9.0-12.0) sec APTT 35.7 H (22.0-30.0) sec Chloride (98-107) mmol/L BUN (7-17) mg/dL Creatinine (0.52-1.04) mg/dL Magnesium (1.6-2.3) mg/dL Influenza Type A (PCR) Detected A (Not Detectd) CT scan - chest: report reviewed Assessment and Plan (1) Lung mass Narrative/Plan: Await family and pulmonary decision on moving forward with tissue biopsy for confirmatory diagnosis. At this time Pulmonary is treating COPD and supportive care as well as heparin drip is continued for a fib per cardiology Current Visit: Yes Status: Acute Code(s): R91.8 - OTHER NONSPECIFIC ABNORMAL FINDING OF LUNG FIELD SNOMED Code(s): 077315533 (2) Anemia Narrative/Plan: Will work up in the interim while decisions regarding a confirmed diagnosis are made Current Visit: Yes Status: Acute Code(s): D64.9 - ANEMIA, UNSPECIFIED SNOMED Code(s): 665456226
[2022-10-17] MEDS: LATANOPROST 0.005% OPHTH DROPS 2.5 ML BTL BOTH EYES SCH (19:50)
[2022-10-17] MEDS: ATORVASTATIN 10 MG TAB PO SCH (19:50)
[2022-10-17] MEDS: MIRTAZAPINE 15 MG TAB PO SCH (19:50)
[2022-10-17 21:24] LABS: ABG Base Excess 1.1 mmol/L; ABG HCO3 26 mmol/L (21-25); ABG Oxygen Saturation 96.2 % (94-97); ABG PCO2 40 mmHg (35-45); ABG PH 7.42 (7.35-7.45); ABG PO2 77 mmHg (83-108); ABG TCO2 27 mmol/L (19-24); Allen Test Performed? Yes
[2022-10-17] MEDS: TIMOLOL 0.5% OPHTH DROPS 5 ML BTL BOTH EYES SCH (21:50)
[2022-10-17] MEDS: MELATONIN 5 MG TABLET PO PRN (22:05)
[2022-10-18] MEDS: IPRATROPIUM-ALBUTEROL 3 ML NEB INHALATION SCH ×7 (00:54→22:57)
[2022-10-18] MEDS: FUROSEMIDE 10 MG/ML 4 ML VIAL IV SCH ×2 (03:54→15:11)
[2022-10-18 06:24] LABS: Basophils % (A) 0 %; Eosinophils % (A) 0 %; HCT 36.6 % (34.0-46.0); HGB 11.7 gm/dL (11.4-16.0); Hypochromasia Slight; Lymphocytes # (A) 0.6 k/uL (1.0-4.8); Lymphocytes % (A) 11 %; MCH 30.4 pg (25.0-35.0); MCHC 32.1 g/dL (31.0-37.0); MCV 94.8 fL (80.0-100.0); Mean Platelet Volume 8.9; Monocytes # (A) 0.4 k/uL (0-1.0); Monocytes % (A) 8 %; Neutrophils # (A) 4.3 k/uL (1.3-7.7); Neutrophils % (A) 80 %; Platelet Count 194 k/uL (150-450); RBC 3.86 m/uL (3.80-5.40); RDW 13.1 % (11.5-15.5); WBC 5.4 k/uL (3.8-10.6)
[2022-10-18] MEDS: methylPREDNISolone SOD SUCCI 125 MG/2 ML VIAL IV SCH ×4 (06:34→22:15)
[2022-10-18 06:39] LABS: Albumin 4.3 g/dL (3.5-5.0); Calcium 9.4 mg/dL (8.4-10.2); INR 1.1 (<1.2); Potassium 3.1 mmol/L (3.5-5.1); Prothrombin Time 12.2 sec (9.0-12.0); Total Bilirubin 0.4 mg/dL (0.2-1.3); Total Protein 7.3 g/dL (6.3-8.2)
[2022-10-18 09:04] LABS: % Iron Saturation 5.75 (12.00-45.00); Ferritin 81.3 ng/mL (10.0-291.0)
[2022-10-18 09:31] VITALS: BMI 25.0
[2022-10-18] MEDS: amLODIPine 2.5 MG TAB PO SCH (10:07)
[2022-10-18] MEDS: atenoloL 50 MG TAB PO SCH (10:08)
[2022-10-18] MEDS: ASPIRIN 81 MG PO SCH (10:08)
[2022-10-18] MEDS: DONEPEZIL 5 MG TAB PO SCH (10:08)
[2022-10-18] MEDS: SERTRALINE 100 MG TAB PO SCH (10:08)
[2022-10-18] MEDS: MONTELUKAST 10 MG TAB PO SCH (10:08)
[2022-10-18] MEDS: HEPARIN SOD,PORK IN 0.45% NACL 25,000 UNIT in 0.45% NACL 1 250ML.BAG IV SCH (12:52)
[2022-10-18] MEDS: HALOPERIDOL LACTATE 5 MG/ML 1 ML VIAL IVP PRN (15:11)
[2022-10-18] MEDS: LEVOFLOXACIN 250 MG TAB PO SCH (15:11)
--- NOTE | 2022-10-18 15:32 | P.PN ---
Subjective Progress Note Date: 10/18/22 HISTORY OF PRESENTING ILLNESS Patient is a pleasant 81-year-old female with history of questionable atrial fibrillation, recent diagnosis of pulmonary nodules and mass. She states she follows with a [employer] at [facility]. She has been having a raspy cough and shortness breath for last 2-3 months. She therefore has undergone workup with prior x-ray showing concern of pulmonary mass and therefore had outpatient CAT scan performed 10/15/2022. CAT scan showed multiple nodules concerning for malignancy. Additionally showed moderate pericardial effusion and pleural effusion. She went home however developed worsening dyspnea and therefore presented back to emergency department. EKG showed atrial fibrillation and patient and grandson unsure if this is something that is chronic. States she m ay have been on Xarelto in the past. No issues with hematochezia or melena. She was additionally having some heartburn sensation however currently improved. 10/18 Patient has a sitter at the bedside due to her dementia. She is on Lasix 40 mg every 12 hours which will be transitioned to oral. Echocardiogram is scheduled for today. Heart rate is in the 70s, campus monitor. Potassium 3.1, BUN 35 creatinine 1.32. PHYSICAL EXAMINATION Vital signs reviewed. CONSTITUTIONAL: No apparent distress. HEENT: Head is normocephalic. Pupils are equal, round. Sclerae anicteric. Mucous membranes of the mouth are moist. No JVD. No carotid bruit. CHEST EXAMINATION: Rales and rhonchi throughout HEART EXAMINATION: Regular rate and rhythm. S1, S2 heard. No murmurs, gallops or rub. ABDOMEN: Soft, nontender. Positive bowel sounds. EXTREMITIES: 2+ peripheral pulses, no lower extremity edema and no calf tenderness. NEUROLOGIC EXAMINATION: Patient is awake, alert and oriented x3. ASSESSMENT 1. Acute on chronic respiratory failure 2. Acute on chronic heart failure, unclear systolic versus diastolic 3. Persistent atrial fibrillation, questionable history in the past 4. Pulmonary lymphadenopathy rule out malignancy 5. Pericardial effusion 6. dementia 7. Extremely hard of hearing PLAN Transitioned to IV Lasix to oral 40 mg twice daily, monitor I&O, daily weights, electrolytes and renal function Check 2-D echo. Patient does have pericardial effusion and possible malignancy and possibility of malignant pericardial effusion. No significant signs or symptoms of tamponade. Continue heparin drip for Afib and eventually change to NOAC however patient will likely need biopsy. Further recs to follow. Nurse practitioner note has been reviewed, I agree with documented findings and plan of care. Patient was seen and examined. Objective - Vital Signs Vital signs: Vital Signs Temp 98.4 F 10/18/22 08:45 Pulse 83 10/18/22 08:45 Resp 20 10/18/22 08:45 BP 153/90 10/18/22 08:45 Pulse Ox 93 L 10/18/22 08:45 FiO2 2 10/17/22 20:11 Intake & Output 10/17/22 10/18/22 10/18/22 18:59 06:59 18:59 Intake Total 230.715 65.456 Output Total 1999 700 Balance -1769.285 -684.544 Weight 70.307 kg 70.307 kg Intake: Intake, IV Titration 62.715 65.456 Amount Heparin Sod,Pork in 0.45% 62.715 65.456 NaCl 25,000 unit In 0.45 % NaCl 1 250ml.bag @ 12 UNITS/KG/HR 8.437 mls/hr IV .Q24H [facility] Rx#: [id number] Oral 168 Output: Urine 1999 700 Other: Voiding Method External Catheter External Catheter - Labs CBC & Chem 7: 10/18/22 05:29 10/18/22 05:29 Labs: Abnormal Lab Results - Last 24 Hours (Table) 10/17/22 10/17/22 10/17/22 Range/Units 13:25 14:43 14:43 Lymphocytes # (1.0-4.8) k/uL PT (9.0-12.0) sec APTT 35.7 H (22.0-30.0) sec ABG pO2 (83-108) mmHg ABG HCO3 (21-25) mmol/L ABG Total CO2 (19-24) mmol/L Potassium (3.5-5.1) mmol/L BUN (7-17) mg/dL Creatinine (0.52-1.04) mg/dL Glucose (74-99) mg/dL Iron (50-170) ug/dL % Saturation (12.00-45.00) Procalcitonin 0.38 H (0.02-0.09) ng/mL Influenza Type A (PCR) Detected A (Not Detectd) 10/17/22 10/17/22 10/18/22 Range/Units 21:20 22:14 05:29 Lymphocytes # (1.0-4.8) k/uL PT (9.0-12.0) sec APTT 42.7 H (22.0-30.0) sec ABG pO2 77 L (83-108) mmHg ABG HCO3 26 H (21-25) mmol/L ABG Total CO2 27 H (19-24) mmol/L Potassium 3.1 L (3.5-5.1) mmol/L BUN 35 H (7-17) mg/dL Creatinine 1.32 H (0.52-1.04) mg/dL Glucose 152 H (74-99) mg/dL Iron 22 L (50-170) ug/dL % Saturation 5.75 L (12.00-45.00) Procalcitonin (0.02-0.09) ng/mL Influenza Type A (PCR) (Not Detectd) 10/18/22 10/18/22 Range/Units 05:29 05:29 Lymphocytes # 0.6 L (1.0-4.8) k/uL PT 12.2 H (9.0-12.0) sec APTT 55.0 H (22.0-30.0) sec ABG pO2 (83-108) mmHg ABG HCO3 (21-25) mmol/L ABG Total CO2 (19-24) mmol/L Potassium (3.5-5.1) mmol/L BUN (7-17) mg/dL Creatinine (0.52-1.04) mg/dL Glucose (74-99) mg/dL Iron (50-170) ug/dL % Saturation (12.00-45.00) Procalcitonin (0.02-0.09) ng/mL Influenza Type A (PCR) (Not Detectd)
[2022-10-18] MEDS ORDERED: POTASSIUM CHLORIDE ER 20 MEQ TAB.ER PO STA (16:16)
[2022-10-18] MEDS: FUROSEMIDE 40 MG TAB PO SCH (16:26)
--- NOTE | 2022-10-18 16:26 | P.PN ---
Subjective Progress Note Date: 10/18/22 81-year-old female patient with known history of dementia. The patient lives with her daughter and son-in-law. The patient has been noted to have progressive worsening in shortness of breath. The patient was having too dyspnea, chest tightness and wheezing. She is an ex-smoker and she quit smoking approximately 6 years ago. She has had several visitation with her primary care physician ultimately she was given a CAT scan of the chest yesterday and the CAT scan showed COPD, small right-sided pleural effusion, small pericardial effusion anteriorly and posteriorly, and there was evidence of a fairly large subcarinal mass with heterogeneous density within the subcarinal opacity. This was measuri ng around 3.5 cm in size. There was another 2.2 cm mass in the proximal right hilum in addition to that there are other smaller mediastinal lymph nodes. The findings are highly suggestive of primary bronchogenic carcinoma. The patient has a 19 mm left thyroid nodule. At the time of my evaluation, the patient was unable to give me any history. She is having significant impairment in cognitive functions. However, it was obvious that she was actively bronchus spastic and wheezing congested. Her swallow mechanism is adequate. Creatinine was at 1.4 and improved with hydration and is down to 1.1. The white suppository 0.8 with a hemoglobin of 14 and the patient has a proBNP level of 8000, negative troponins, normal liver function tests. No angina. No palpitation. No chest pain. No other complaints otherwise for now. The patient was found to be in atrial fibrillation also. She hasn't. Hearing. She is currently on IV heparin. In the management of atrial fibrillations per card iology. She was given Lasix. The patient is seen today 10/18/2022 in follow-up on the selective care unit. She is currently resting comfortably in bed. Awake and alert in no acute distress. Alert and oriented times one. Her family is at the bedside. Currently maintaining O2 saturations in the upper 90s on 3 L/m per nasal cannula. Afebrile. Hemodynamically stable. She is continued on DuoNeb inhalations, IV Solu-Medrol. Antibiotics in the form of Levaquin. Currently on a heparin drip. Continues to be diuresed. Remains in a -1.2 L balance. Objective - Vital Signs Vital signs: Vital Signs Temp 97.6 F 10/18/22 15:18 Pulse 78 10/18/22 15:18 Resp 18 10/18/22 15:18 BP 117/66 10/18/22 15:18 Pulse Ox 97 10/18/22 15:18 FiO2 2 10/17/22 20:11 Intake & Output 10/17/22 10/18/22 10/18/22 18:59 06:59 18:59 Intake Total 230.715 65.456 121.829 Output Total 2000 700 1800 Balance -1769.285 -634.544 -1678.171 Weight 70.307 kg 70.307 kg Intake: Intake, IV Titration 62.715 65.456 121.829 Amount Heparin Sod,Pork in 0.45% 62.715 65.456 121.829 NaCl 25,000 unit In 0.45 % NaCl 1 250ml.bag @ 12 UNITS/KG/HR 8.437 mls/hr IV .Q24H [facility] Rx#: [id number] Oral 168 Output: Urine 1999 700 1800 Other: Voiding Method External Catheter External Catheter External Catheter - Exam CONSTITUTIONAL: Alert, oriented times one, 81-year-old female, on 3 L nasal cannula, no apparent distress. Head exam was generally normal. There was no scleral icterus or corneal arcus. Mucous membranes were moist. HEENT: Head is normocephalic. Pupils are equal, round. Sclerae anicteric. Mucous membranes of the mouth are moist. No JVD. No carotid bruit. CHEST EXAMINATION: Diminished breath sounds along with diffuse expiratory wheezing throughout the lung field bilaterally and the patient is a prolongation of the exhalation phase of breathing HEART EXAMINATION: Irregular rate and rhythm. S1, S2 heard. No murmurs, gallops or rub. ABDOMEN: Soft, nontender. Positive bowel sounds. EXTREMITIES: 2+ peripheral pulses, no lower extremity edema and no calf tendern ess. NEUROLOGIC EXAMINATION: Patient is awake, alert and the patient has significant impairment in cognitive functions. She has advanced dementia. She is moving all 4 extremities. Examination of the skin revealed no evidence of significant rashes, suspicious appearing nevi or other concerning lesions. - Labs CBC & Chem 7: 10/18/22 05:29 10/18/22 05:29 Labs: Abnormal Lab Results - Last 24 Hours (Table) 10/17/22 10/17/22 10/17/22 Range/Units 14:43 21:20 22:14 Lymphocytes # (1.0-4.8) k/uL PT (9.0-12.0) sec APTT 42.7 H (22.0-30.0) sec ABG pO2 77 L (83-108) mmHg ABG HCO3 26 H (21-25) mmol/L ABG Total CO2 27 H (19-24) mmol/L Potassium (3.5-5.1) mmol/L BUN (7-17) mg/dL Creatinine (0.52-1.04) mg/dL Glucose (74-99) mg/dL Iron (50-170) ug/dL % Saturation (12.00-45.00) Procalcitonin 0.38 H (0.02-0.09) ng/mL 10/18/22 10/18/22 10/18/22 Range/Units 05:29 05:29 05:29 Lymphocytes # 0.6 L (1.0-4.8) k/uL PT 12.2 H (9.0-12.0) sec APTT 55.0 H (22.0-30.0) sec ABG pO2 (83-108) mmHg ABG HCO3 (21-25) mmol/L ABG Total CO2 (19-24) mmol/L Potassium 3.1 L (3.5-5.1) mmol/L BUN 35 H (7-17) mg/dL Creatinine 1.32 H (0.52-1.04) mg/dL Glucose 152 H (74-99) mg/dL Iron 22 L (50-170) ug/dL % Saturation 5.75 L (12.00-45.00) Procalcitonin (0.02-0.09) ng/mL Assessment and Plan Assessment: Acute COPD exacerbation with secondary dyspnea, bronchospasm and wheeze. Rule out viral infection. We'll screen the patient for viral infection including Covid 19, RSV and influenza. The patient has been vaccinated for Covid 19 in the past. No airspace disease Right hilar mass measuring 2.2 cm in addition to a fairly large subcarinal lymph node/mass measuring 3.5 cm in size, highly suggestive of primary bronchogenic cancer of the lung Small right-sided pleural effusion Small to moderate-sized pericardial effusion Shortness of breath secondary to above Chronic smoker and the patient quit smoking approximately 6 years ago Chronic atrial fibrillation Suspect congestion heart failure with an elevated proBNP level, responding to diuretics Acute kidney injury, recovering Advanced dementia with impairment of the cognitive functions. Impaired hearing Hypertension Plan: The patient was seen and evaluated Medications and labs reviewed Continue to titrate the FiO2 as tolerated Will most likely plan outpatient workup if any regarding the right hilar mass Family is aware and may consider no biopsies and no treatment She is a DO NOT RESUSCITATE/DO NOT INTUBATE CODE STATUS We will continue the current treatment plan for now We will continue to follow I have personally seen and examined the patient, performed the documentation and the assessment and plan as written. Number of minutes spent on the visit: 10.
--- NOTE | 2022-10-18 16:28 | P.PN ---
Subjective Progress Note Date: 10/18/22 Hospital course: Patient is a very pleasant 81-year-old female with a past medical history of hypertension, hyperlipidemia, dementia, and hypothyroidism. She presented to the emergency department on 10/17/22 with a chief complaint of worsening cough, congestion, and "rattling in her chest" over the past month. Information was reportedly obtained from family at bedside at this time, as patient is unable to provide history due to dementia and baseline mentation of A&O 1-2. Patient underwent full evaluation in the emergency department. She was found to test positive for influenza A and upon arrival was in respiratory distress with respiratory rate of 45 and SpO2 of 94% on room air.. Chest x-ray revealing cardiomegaly with mild pulmonary fibrotic changes and concerns for underlying mild heart failure. EKG showing atrial fibrillation with a controlled ventricular rate of 77 bpm. CBC revealed normocytic anemia with hemoglobin of 10.4. ABG revealed compensated respiratory acidosis with pH of 7.42, pO2 of 77, bicarb of 26, and total CO2 of 27. BMP reveals slightly elevated renal function with BUN of 32, creatinine of 1.17, and GFR 44. Troponin was negative at less than 0.012 and pro-BMP 8080. Pro-calcitonin slightly elevated at 0.38. [place] yousuf to new findings of atrial fibrillation with no documented or reported history, patient was started on heparin infusion. Patient was admitted under our services with consultation to cardiology and pulmonology. Physical exam: Patient was seen and evaluated at bedside this morning. Patient resting, easily awoken via verbal stimuli. machinist set up at bedside reports patient had rough night and became agitated with staff. Currently patient calm and cooperative. She remains baseline mentation alert and oriented to self only. Patient denies having any pain or complaints at this time. Vital signs reviewed and stable. General: Nontoxic, no distress and appears stated age. Derm: Skin warm and dry, normal coloration for ethnicity. Head: Atraumatic, normocephalic and symmetric. Eyes: EOMs intact, no lid lag, and anicteric sclera Mouth: no lip lesions, mucus membranes moist Cardiovascular: regular rate and rhythm with normal S1S2, systolic murmur, positive posterior tibial pulses bilaterally, and cap refill < 2 seconds. Lungs: Respirations even, regular, and unlabored on 3 L O2 via nasal cannula.. Lungs diffuse coarse rhonchi bilaterally. diffuse coarse rhonchi bilaterally.Abdominal: soft, nontender to palpation, no guarding, no appreciable organomegaly Ext: ROM intact. No gross muscle atrophy, no edema, no contractures Neuro: Speech clear, face symmetrical with no noted focal neuro deficits. GCS 14. Psych: Alert and oriented to person only. Assessment and Plan of Care: Acute on chronic respiratory failure with hypoxia secondary to COPD exacerbation resulting from influenza A Acute COPD exacerbation Influenza A -Oxygenation to be administered and titrated as needed to maintain SPO2 equal to or greater than 92% -Telemetry monitoring. -Monitor Pulse-oximetry -Duonebs as needed for SOB and/or wheezing -Incentive Spirometry -Steroids: Solu-Medrol -Patient would not benefit from antiviral medications such as Tamiflu as reported symptoms started approximately 3-4 weeks ago. Persistent atrial fibrillation, appears to be new onset atrial fib with a controlled ventricular rate Acute heart failure, unclear type pending echocardiogram completion. Hypertension Hyperlipidemia -Cardiology following, appreciate further recommendations -Telemetry monitoring -ProBNP 8080. -Daily weights -Close monitoring of I's and O's -Cardiac diet -Lasix -Continue cardiac medication regimen with Aspirin, atorvastatin, amlodipine and atenolol -Continuation of heparin infusion pending further recommendations from cardiology. -Continued close monitoring of electrolytes while diuresing. -Echocardiogram Dementia -Provide safe and supportive care with redirection and assistance as needed. -Continue daily medication regimen with Aricept. CODE STATUS: DO NOT RESUSCITATE/DO NOT INTUBATE DVT prophylaxis: Heparin infusion Discussed with: Patient, RN, and chief security and safety officer at bedside Anticipated discharge date: Clinical course to determine Anticipated discharge place: Return home with daughter A total of 35 minutes was spent on the care of this complex patient more than 50% of the time was spent in counseling and care coordination. Jan Porter NP rendered care for this patient independently, reviewed the findings and plan as documented in the note above. I did not physically speak with or examine the patient on this date. Objective - Vital Signs Vital signs: Vital Signs Temp 97.6 F 10/18/22 15:18 Pulse 78 10/18/22 15:18 Resp 18 10/18/22 15:18 BP 117/66 10/18/22 15:18 Pulse Ox 97 10/18/22 15:18 FiO2 2 10/17/22 20:11 Intake & Output 10/17/22 10/18/22 10/18/22 18:59 06:59 18:59 Intake Total 230.715 65.456 121.829 Output Total 1999 700 1800 Balance -1769.285 -634.544 -1678.171 Weight 70.307 kg 70.307 kg Intake: Intake, IV Titration 62.715 65.456 121.829 Amount Heparin Sod,Pork in 0.45% 62.715 65.456 121.829 NaCl 25,000 unit In 0.45 % NaCl 1 250ml.bag @ 12 UNITS/KG/HR 8.437 mls/hr IV .Q24H [facility] Rx#: [id number] Oral 168 Output: Urine 1999 700 1800 Other: Voiding Method External Catheter External Catheter External Catheter - Labs CBC & Chem 7: 10/18/22 05:29 10/18/22 05:29 Labs: Abnormal Lab Results - Last 24 Hours (Table) 10/17/22 10/17/22 10/17/22 Range/Units 14:43 21:20 22:14 Lymphocytes # (1.0-4.8) k/uL PT (9.0-12.0) sec APTT 42.7 H (22.0-30.0) sec ABG pO2 77 L (83-108) mmHg ABG HCO3 26 H (21-25) mmol/L ABG Total CO2 27 H (19-24) mmol/L Potassium (3.5-5.1) mmol/L BUN (7-17) mg/dL Creatinine (0.52-1.04) mg/dL Glucose (74-99) mg/dL Iron (50-170) ug/dL % Saturation (12.00-45.00) Procalcitonin 0.38 H (0.02-0.09) ng/mL 10/18/22 10/18/22 10/18/22 Range/Units 05:29 05:29 05:29 Lymphocytes # 0.6 L (1.0-4.8) k/uL PT 12.2 H (9.0-12.0) sec APTT 55.0 H (22.0-30.0) sec ABG pO2 (83-108) mmHg ABG HCO3 (21-25) mmol/L ABG Total CO2 (19-24) mmol/L Potassium 3.1 L (3.5-5.1) mmol/L BUN 35 H (7-17) mg/dL Creatinine 1.32 H (0.52-1.04) mg/dL Glucose 152 H (74-99) mg/dL Iron 22 L (50-170) ug/dL % Saturation 5.75 L (12.00-45.00) Procalcitonin (0.02-0.09) ng/mL
[2022-10-18] MEDS: MIRTAZAPINE 15 MG TAB PO SCH (20:24)
[2022-10-18] MEDS: ATORVASTATIN 10 MG TAB PO SCH (20:24)
[2022-10-18] MEDS: TIMOLOL 0.5% OPHTH DROPS 5 ML BTL BOTH EYES SCH (20:25)
[2022-10-19] MEDS: IPRATROPIUM-ALBUTEROL 3 ML NEB INHALATION SCH ×6 (03:20→23:42)
[2022-10-19] MEDS: methylPREDNISolone SOD SUCCI 125 MG/2 ML VIAL IV SCH ×3 (05:58→18:04)
[2022-10-19 06:12] LABS: Glucose,Whole Blood 135 mg/dL (70-110)
[2022-10-19 09:19] LABS: HCT 39.1 % (34.0-46.0); HGB 12.2 gm/dL (11.4-16.0); Hypochromasia Moderate; MCH 29.9 pg (25.0-35.0); MCHC 31.3 g/dL (31.0-37.0); MCV 95.5 fL (80.0-100.0); Mean Platelet Volume 8.7; Platelet Count 202 k/uL (150-450); RDW 12.9 % (11.5-15.5); WBC 6.6 k/uL (3.8-10.6)
[2022-10-19] MEDS: INSULIN ASPART (NovoLOG) 100 UNIT/ML VIAL SQ SCH ×4 (09:22→21:37)
[2022-10-19] MEDS: SERTRALINE 100 MG TAB PO SCH (09:28)
[2022-10-19] MEDS: atenoloL 50 MG TAB PO SCH (09:28)
[2022-10-19] MEDS: MONTELUKAST 10 MG TAB PO SCH (09:28)
[2022-10-19] MEDS: ASPIRIN 81 MG PO SCH (09:28)
[2022-10-19] MEDS: amLODIPine 2.5 MG TAB PO SCH (09:28)
[2022-10-19] MEDS: FUROSEMIDE 40 MG TAB PO SCH ×2 (09:28→18:04)
[2022-10-19] MEDS: DONEPEZIL 5 MG TAB PO SCH (09:35)
[2022-10-19 09:42] LABS: Albumin 4.2 g/dL (3.5-5.0); Calcium 9.8 mg/dL (8.4-10.2); Magnesium 2.4 mg/dL (1.6-2.3); Potassium 4.1 mmol/L (3.5-5.1); Total Bilirubin 0.4 mg/dL (0.2-1.3); Total Protein 7.2 g/dL (6.3-8.2)
[2022-10-19 11:59] LABS: Glucose,Whole Blood 139 mg/dL (70-110)
[2022-10-19] MEDS: LEVOFLOXACIN 250 MG TAB PO SCH (12:19)
--- NOTE | 2022-10-19 12:27 | CA ---
Transthoracic Echo Report Name: Rose Marie Gutierrez Age: 81 Gender: F : 1940 Exam Date: 10/19/2022 07:43 Exam Location: [place] [facility] Ht (in): 66 Wt (lb): 155 Ordering Physician: Harley Almendarez DO Attending/Referring Phys: [id number], [place] Meeting Facilitator Medina Oquendo RDCS Procedure CPT: Indications: Heart failure Cardiac Hx: Technical Quality: Fair Contrast 1: Total Dose (mL): Contrast 2: Total Dose (mL): MEASUREMENTS (Male / Female) Normal Values 2D ECHO LV Diastolic Diameter PLAX 4.5 cm 4.2 - 5.9 / 3.9 - 5.3 cm LV Systolic Diameter PLAX 2.4 cm IVS Diastolic Thickness 1.3 cm 0.6 - 1.0 / 0.6 - 0.9 cm LVPW Diastolic Thickness 1.5 cm 0.6 - 1.0 / 0.6 - 0.9 cm LV Relative Wall Thickness 0.6 RV Internal Dim ED PLAX 3.0 cm LVOT Diameter 2.0 cm LA Systolic Diameter LX 4.3 cm 3.0 - 4.0 / 2.7 - 3.8 cm LV Diastolic Volume MOD 4C 94.6 cm??? LV Systolic Volume MOD 4C 51.3 cm??? LV Ejection Fraction MOD 4C 45.7 % LV Diastolic Length 4C 6.6 cm LV Systolic Length 4C 6.1 cm LV Diastolic Volume MOD 2C 55.0 cm??? LV Systolic Volume MOD 2C 17.3 cm??? LV Ejection Fraction MOD 2C 68.6 % LV Diastolic Length 2C 6.6 cm LV Systolic Length 2C 5.6 cm LA Volume 53.0 cm??? 18 - 58 / 22 - 52 cm??? M-MODE Aortic Root Diameter MM 3.1 cm MV E Point Septal Separation 0.3 cm AV Cusp Separation MM 1.2 cm DOPPLER AV Peak Velocity 239.4 cm/s AV Peak Gradient 22.9 mmHg AV Mean Velocity 138.4 cm/s AV Mean Gradient 9.4 mmHg AV Velocity Time Integral 43.1 cm LVOT Peak Velocity 154.0 cm/s LVOT Peak Gradient 9.5 mmHg AV Area Cont Eq pk 2.1 cm??? MV Area PHT 4.4 cm??? MV Deceleration Time 175.5 ms TR Peak Velocity 276.5 cm/s TR Peak Gradient 30.6 mmHg Right Ventricular Systolic Press 34.8 mmHg FINDINGS Left Ventricle Left ventricular ejection fraction is estimated at 55 %. Left ventricular cavity size normal. Moderate concentric left ventricular hypertrophy. Right Ventricle Normal right ventricular size. Mild pulmonary hypertension. Right Atrium Normal right atrial size. Left Atrium Mildly increased left atrial diameter. No evidence for an atrial septal defect. Mitral Valve Mitral valve thickened. Mitral annular calcification. Mild mitral regurgitation. Aortic Valve Trileaflet aortic valve. Moderate Aortic valve sclerosis. Mild aortic stenosis with a peak gradient of 23 mmHg and a mean gradient of 9 mmHg. Tricuspid Valve Structurally normal tricuspid valve. Mild tricuspid regurgitation. Pulmonic Valve Structurally normal pulmonic valve. Mild pulmonic regurgitation. Pericardium Normal pericardium. No pericardial effusion. Aorta Normal size aortic root and proximal ascending aorta. CONCLUSIONS Normal LV size and systolic function. Aortic valve sclerosis with mitral annular calcification mild mitral regurgitation no significant pulmonary hypertension. No pericardial effusion. No significant gradient across aortic valve, probably mild stenosis if any Previewed by: Dr. Alton Arora MD (Electronically Signed) Final Date: 19 October 2022 12:26
--- NOTE | 2022-10-19 14:33 | P.PN ---
Subjective Progress Note Date: 10/19/22 HISTORY OF PRESENTING ILLNESS Patient is a pleasant 81-year-old female with history of questionable atrial fibrillation, recent diagnosis of pulmonary nodules and mass. She states she follows with a cargo surveyor at [facility]. She has been having a raspy cough and shortness breath for last 2-3 months. She therefore has undergone workup with prior x-ray showing concern of pulmonary mass and therefore had outpatient CAT scan performed 10/15/2022. CAT scan showed multiple nodules concerning for malignancy. Additionally showed moderate pericardial effusion and pleural effusion. She went home however developed worsening dyspnea and therefore presented back to emergency department. EKG showed atrial fibrillation and patient and grandson unsure if this is something that is chronic. States she m ay have been on Xarelto in the past. No issues with hematochezia or melena. She was additionally having some heartburn sensation however currently improved. 10/18 Patient has a sitter at the bedside due to her dementia. She is on Lasix 40 mg every 12 hours which will be transitioned to oral. Echocardiogram is scheduled for today. Heart rate is in the 70s, secured entrance monitor. Potassium 3.1, BUN 35 creatinine 1.32. 10/19 Patient remains with a sitter at the bedside secondary to her underlying dementia. Echocardiogram has been done this morning but report is pending. She is on oral Lasix. court recording monitor is atrial fibrillation with controlled rate. Heparin drip will be discontinued and patient will be started on eliquis 2.5 mg twice daily. PHYSICAL EXAMINATION Vital signs reviewed. CONSTITUTIONAL: No apparent distress. HEENT: Head is normocephalic. Pupils are equal, round. Sclerae anicteric. Mucous membranes of the mouth are moist. No JVD. No carotid bruit. CHEST EXAMINATION: Rales and rhonchi throughout HEART EXAMINATION: Regular rate and rhythm. S1, S2 heard. No murmurs, gallops or rub. ABDOMEN: Soft, nontender. Positive bowel sounds. EXTREMITIES: 2+ peripheral pulses, no lower extremity edema and no calf tenderness. NEUROLOGIC EXAMINATION: Patient is awake, alert and oriented x3. ASSESSMENT 1. Acute on chronic respiratory failure 2. Acute on chronic heart failure, unclear systolic versus diastolic 3. Persistent atrial fibrillation, questionable history in the past 4. Pulmonary lymphadenopathy rule out malignancy 5. Pericardial effusion 6. dementia 7. Extremely hard of hearing PLAN Continue Lasix oral 40 mg twice daily, monitor I&O, daily weights, electrolytes and renal function Check 2-D echo, report is pending. Patient does have pericardial effusion and possible malignancy and possibility of malignant pericardial effusion. No significant signs or symptoms of tamponade. Transition patient to eliquis, off heparin, if patient is not having biopsy performed. Patient's nurse will follow up regarding this. Nurse practitioner note has been reviewed, I agree with documented findings and plan of care. Patient was seen and examined. Objective - Vital Signs Vital signs: Vital Signs Temp 98.0 F 10/19/22 04:00 Pulse 76 10/19/22 11:34 Resp 16 10/19/22 08:00 BP 137/80 10/19/22 08:00 Pulse Ox 99 10/19/22 08:00 FiO2 2 10/17/22 20:11 Intake & Output 10/18/22 10/19/22 10/19/22 18:59 06:59 18:59 Intake Total 121.829 Output Total 1800 Balance -1678.171 Weight 70.307 kg Intake: Intake, IV Titration 121.829 Amount Heparin Sod,Pork in 0.45% 121.829 NaCl 25,000 unit In 0.45 % NaCl 1 250ml.bag @ 12 UNITS/KG/HR 8.437 mls/hr IV .Q24H [facility] Rx#: [id number] Output: Urine 1800 Other: Voiding Method External Catheter External Catheter External Catheter - Labs CBC & Chem 7: 10/19/22 08:34 10/19/22 08:34 Labs: Abnormal Lab Results - Last 24 Hours (Table) 10/19/22 10/19/22 Range/Units 06:10 08:34 BUN 46 H (7-17) mg/dL Creatinine 1.59 H (0.52-1.04) mg/dL Glucose 117 H (74-99) mg/dL POC Glucose (mg/dL) 135 H (70-110) mg/dL Magnesium 2.4 H (1.6-2.3) mg/dL
--- NOTE | 2022-10-19 15:07 | P.PN ---
Subjective Progress Note Date: 10/19/22 Principal diagnosis: Acute exacerbation of COPD 81-year-old female patient with known history of dementia. The patient lives with her daughter and son-in-law. The patient has been noted to have progressive worsening in shortness of breath. The patient was having too dyspnea, chest tightness and wheezing. She is an ex-smoker and she quit smoking approximately 6 years ago. She has had several visitation with her primary care physician ultimately she was given a CAT scan of the chest yesterday and the CAT scan showed COPD, small right-sided pleural effusion, small pericardial effusion anteriorly and posteriorly, and there was evidence of a fairly large subcarinal mass with heterogeneous density within the subcarinal opacity. This was measuring around 3.5 cm in size. There was another 2.2 cm mass in the proximal right hilum in addition to that there are other smaller mediastinal lymph nodes. The findings are highly suggestive of primary bronchogenic carcinoma. The patient has a 19 mm left thyroid nodule. At the time of my evaluation, the patient was unable to give me any history. She is having significant impairment in cognitive functions. However, it was obvious that she was actively bronchus spastic and wheezing congested. Her swallow mechanism is adequate. Creatinine was at 1.4 and improved with hydration and is down to 1.1. The white supposito ry 0.8 with a hemoglobin of 14 and the patient has a proBNP level of 8000, negative troponins, normal liver function tests. No angina. No palpitation. No chest pain. No other complaints otherwise for now. The patient was found to be in atrial fibrillation also. She hasn't. Hearing. She is currently on IV heparin. In the management of atrial fibrillations per cardiology. She was given Lasix. The patient is seen today 10/18/2022 in follow-up on the selective care unit. She is currently resting comfortably in bed. Awake and alert in no acute distress. Alert and oriented times one. Her family is at the bedside. Currently maintaining O2 saturations in the upper 90s on 3 L/m per nasal cannula. Afebrile. Hemodynamically stable. She is continued on DuoNeb inhalations, IV Solu-Medrol. Antibiotics in the form of Levaquin. Currently on a heparin drip. Continues to be diuresed. Remains in a -1.2 L balance. Reevaluated today on 10/19/2022, patient is resting in bed, her daughter is at bedside, breathing a bit better compared to yesterday, nonetheless she continues to have intermittent cough and wheezing, patient is on broken dilators, antibiotics, steroids, and she is also on diuretics. Feeling a bit better, but nonetheless she remains symptomatic. CBC is relatively normal lites are normal BUN is 46 creatinine 1.5, rising compared to yesterday creatinine was 1.3 to Objective - Vital Signs Vital signs: Vital Signs Temp 98.0 F 10/19/22 04:00 Pulse 76 10/19/22 11:34 Resp 16 10/19/22 12:00 BP 129/82 10/19/22 12:00 Pulse Ox 97 10/19/22 12:00 FiO2 2 10/17/22 20:11 Intake & Output 10/18/22 10/19/22 10/19/22 18:59 06:59 18:59 Intake Total 121.829 368 Output Total 1800 Balance -1678.171 368 Weight 70.307 kg Intake: Intake, IV Titration 121.829 250 Amount Heparin Sod,Pork in 0.45% 121.829 250 NaCl 25,000 unit In 0.45 % NaCl 1 250ml.bag @ 12 UNITS/KG/HR 8.437 mls/hr IV .Q24H [facility] Rx#: [id number] Oral 118 Output: Urine 1800 Other: Voiding Method External Catheter External Catheter External Catheter - Exam Physical Exam: Revealed an 81-year-old female confused on 3 L nasal cannula daughter is at bedside. Head: Atraumatic, normocephalic. HEENT:[Neck is supple.] [No neck masses.] [No thyromegaly.] [No JVD.] Chest: [Scattered rhonchi noted bilaterally more so on forced expiratory maneuver. Cardiac Exam: Irregular irregular rhythm. [Normal S1 and S2, no S3 gallop, no murmur.] Abdomen: [Soft, nontender, no megaly, no rebound, no guarding, normal bowel sounds.] Extremities: [No clubbing, no edema, no cyanosis.] Neurological Exam: Pleasantly demented, otherwise no gross focal deficits. Psychiatric: Demented, normal affect. Follows simple instructions, hard of hearing - Labs CBC & Chem 7: 10/19/22 08:34 10/19/22 08:34 Labs: Abnormal Lab Results - Last 24 Hours (Table) 10/19/22 10/19/22 10/19/22 Range/Units 06:10 08:34 11:52 BUN 46 H (7-17) mg/dL Creatinine 1.59 H (0.52-1.04) mg/dL Glucose 117 H (74-99) mg/dL POC Glucose (mg/dL) 135 H 139 H (70-110) mg/dL Magnesium 2.4 H (1.6-2.3) mg/dL Assessment and Plan Assessment: Acute COPD exacerbation Right hilar mass measuring 2.2 cm in addition to a fairly large subcarinal lymph node/mass measuring 3.5 cm in size, highly suggestive of primary bronchogenic cancer of the lung Small right-sided pleural effusion Small to moderate-sized pericardial effusion Shortness of breath secondary to above Chronic smoker and the patient quit smoking approximately 6 years ago Chronic atrial fibrillation Suspect congestion heart failure with an elevated proBNP level, responding to diuretics Acute kidney injury, recovering Advanced dementia with impairment of the cognitive functions. Impaired hearing Hypertension Recommendation: Continue bronchodilators. Discussed with the daughter yesterday and today potential outpatient workup after discharge, or possibly conservative measures for her presumptive bronchogenic carcinoma. The daughter seems to be inclined to consider conservative measures and no diagnostic procedures/bronchoscopy. DO NOT RESUSCITATE CODE STATUS. Continue to optimize her pulmonary status with medications for now Time with Patient: Less than 30
[2022-10-19 17:17] LABS: Glucose,Whole Blood 152 mg/dL (70-110)
--- NOTE | 2022-10-19 17:28 | P.PN ---
Subjective Progress Note Date: 10/19/22 Hospital course: Patient is a very pleasant 81-year-old female with a past medical history of hypertension, hyperlipidemia, dementia, and hypothyroidism. She presented to the emergency department on 10/17/22 with a chief complaint of worsening cough, congestion, and "rattling in her chest" over the past month. Information was reportedly obtained from family at bedside at this time, as patient is unable to provide history due to dementia and baseline mentation of A&O 1-2. Patient underwent full evaluation in the emergency department. She was found to test positive for influenza A and upon arrival was in respiratory distress with respiratory rate of 45 and SpO2 of 94% on room air.. Chest x-ray revealing cardiomegaly with mild pulmonary fibrotic changes and concerns for underlying mild heart failure. EKG showing atrial fibrillation with a controlled ventricular rate of 77 bpm. CBC revealed normocytic anemia with hemoglobin of 10.4. ABG revealed compensated respiratory acidosis with pH of 7.42, pO2 of 77, bicarb of 26, and total CO2 of 27. BMP reveals slightly elevated renal function with BUN of 32, creatinine of 1.17, and GFR 44. Troponin was negative at less than 0.012 and pro-BMP 8080. Pro-calcitonin slightly elevated at 0.38. [place] yousuf to new findings of atrial fibrillation with no documented or reported history, patient was started on heparin infusion. Patient was admitted under our services with consultation to cardiology and pulmonology. Physical exam: Patient was seen and evaluated at bedside this morning. Sitter remains at bedside for safety. Patient remains at baseline mentation. This morning she was alert to person and place but confused to time and situation. Respirations are even, regular, and unlabored. Lung sounds showing improvement, no longer coarse rhonchi this morning only with by basilar crackles. Patient denies having any pain or complaints at this time. If continued improvement likely discharge within the next 24-48 hours. RN communication placed to wean patient from oxygen as she tolerates this patient this morning on 3 L O2 with SpO2 of 97%. Vital signs reviewed and stable. General: Nontoxic, no distress and appears stated age. Derm: Skin warm and dry, normal coloration for ethnicity. Head: Atraumatic, normocephalic and symmetric. Hard of hearing. Eyes: EOMs intact, no lid lag, and anicteric sclera Mouth: no lip lesions, mucus membranes moist Cardiovascular: regular rate and rhythm with normal S1S2, systolic murmur, positive posterior tibial pulses bilaterally, and cap refill < 2 seconds. Lungs: Respirations even, regular, and unlabored on 3 L O2 via nasal cannula.. Lungs bibasilar crackles. diffuse coarse rhonchi bilaterally.Abdominal: soft, nontender to palpation, no guarding, no appreciable organomegaly Ext: ROM intact. No gross muscle atrophy, no edema, no contractures Neuro: Speech clear, face symmetrical with no noted focal neuro deficits. GCS 14. Psych: Alert and oriented to person only. Assessment and Plan of Care: Acute on chronic respiratory failure with hypoxia secondary to COPD exacerbation resulting from influenza A Acute COPD exacerbation Influenza A Right hilar mass measuring 2.2 cm in addition to a fairly large subcarinal lymph node/mass measuring 3.5 cm in size, highly suspicious for lung cancer Small right-sided pleural effusion Small to moderate-sized pericardial effusion -Oxygenation to be administered and titrated as needed to maintain SPO2 equal to or greater than 92% -Telemetry monitoring. -Monitor Pulse-oximetry -Duonebs as needed for SOB and/or wheezing -Incentive Spirometry -Steroids: Solu-Medrol -Patient would not benefit from antiviral medications such as Tamiflu as reported symptoms started approximately 3-4 weeks ago. -Pulmonology following Persistent atrial fibrillation, appears to be new onset atrial fib with a controlled ventricular rate Acute heart failure, unclear type pending echocardiogram completion. Hypertension Hyperlipidemia -Cardiology following, appreciate further recommendations -Telemetry monitoring -ProBNP 8080. -Daily weights -Close monitoring of I's and O's -Cardiac diet -Lasix -Continue cardiac medication regimen with Aspirin, atorvastatin, amlodipine and atenolol -Continuation of heparin infusion pending further recommendations from cardiology. -Continued close monitoring of electrolytes while diuresing. -Echocardiogram Dementia -Provide safe and supportive care with redirection and assistance as needed. -Continue daily medication regimen with Aricept. CODE STATUS: DO NOT RESUSCITATE/DO NOT INTUBATE DVT prophylaxis: Heparin infusion Discussed with: Patient, RN, and safety consultant at bedside Anticipated discharge date: Clinical course to determine Anticipated discharge place: Return home with daughter A total of 35 minutes was spent on the care of this complex patient more than 5 0% of the time was spent in counseling and care coordination. I reviewed the documentation as provided by the QUEENIE above, who is the original author of this note. I agree with the documented assessment and plan, with the following changes: none Objective - Vital Signs Vital signs: Vital Signs Temp 98.0 F 10/19/22 04:00 Pulse 72 10/19/22 08:29 Resp 18 10/19/22 04:00 BP 149/82 10/19/22 04:00 Pulse Ox 92 L 10/19/22 04:00 FiO2 2 10/17/22 20:11 Intake & Output 10/18/22 10/19/22 10/19/22 18:59 06:59 18:59 Intake Total 121.829 Output Total 1800 Balance -1678.171 Weight 70.307 kg Intake: Intake, IV Titration 121.829 Amount Heparin Sod,Pork in 0.45% 121.829 NaCl 25,000 unit In 0.45 % NaCl 1 250ml.bag @ 12 UNITS/KG/HR 8.437 mls/hr IV .Q24H [facility] Rx#: [id number] Output: Urine 1800 Other: Voiding Method External Catheter External Catheter - Labs CBC & Chem 7: 10/19/22 08:34 10/21/22 10:03 Labs: Abnormal Lab Results - Last 24 Hours (Table) 10/19/22 Range/Units 06:10 POC Glucose (mg/dL) 135 H (70-110) mg/dL
[2022-10-19] MEDS: HEPARIN SOD,PORK IN 0.45% NACL 25,000 UNIT in 0.45% NACL 1 250ML.BAG IV SCH (17:58)
[2022-10-19] MEDS: HALOPERIDOL LACTATE 5 MG/ML 1 ML VIAL IVP PRN (19:11)
[2022-10-19] MEDS: MELATONIN 5 MG TABLET PO PRN (20:13)
[2022-10-19] MEDS: MIRTAZAPINE 15 MG TAB PO SCH (20:13)
[2022-10-19] MEDS: APIXABAN 2.5 MG TABLET PO SCH (20:13)
[2022-10-19] MEDS: ATORVASTATIN 10 MG TAB PO SCH (20:13)
[2022-10-19] MEDS: TIMOLOL 0.5% OPHTH DROPS 5 ML BTL BOTH EYES SCH (20:14)
[2022-10-19 20:42] LABS: Glucose,Whole Blood 149 mg/dL (70-110)
[2022-10-19] MEDS: LATANOPROST 0.005% OPHTH DROPS 2.5 ML BTL BOTH EYES SCH (21:38)
[2022-10-20] MEDS: IPRATROPIUM-ALBUTEROL 3 ML NEB INHALATION SCH ×6 (03:51→23:07)
[2022-10-20] MEDS: methylPREDNISolone SOD SUCCI 125 MG/2 ML VIAL IV SCH ×5 (04:31→23:52)
[2022-10-20 06:25] LABS: Glucose,Whole Blood 107 mg/dL (70-110)
[2022-10-20] MEDS: INSULIN ASPART (NovoLOG) 100 UNIT/ML VIAL SQ SCH ×4 (08:56→20:20)
[2022-10-20] MEDS: atenoloL 50 MG TAB PO SCH (09:05)
[2022-10-20] MEDS: SERTRALINE 100 MG TAB PO SCH (09:05)
[2022-10-20] MEDS: APIXABAN 2.5 MG TABLET PO SCH ×2 (09:05→20:19)
[2022-10-20] MEDS: amLODIPine 2.5 MG TAB PO SCH (09:05)
[2022-10-20] MEDS: MONTELUKAST 10 MG TAB PO SCH (09:05)
[2022-10-20] MEDS: FUROSEMIDE 40 MG TAB PO SCH ×2 (09:05→17:33)
[2022-10-20 11:59] LABS: Glucose,Whole Blood 178 mg/dL (70-110)
[2022-10-20] MEDS: DONEPEZIL 5 MG TAB PO SCH (12:31)
[2022-10-20] MEDS: LEVOFLOXACIN 250 MG TAB PO SCH (12:32)
--- NOTE | 2022-10-20 13:00 | P.PN ---
Subjective Progress Note Date: 10/20/22 HISTORY OF PRESENTING ILLNESS Patient is a pleasant 81-year-old female with history of questionable atrial fibrillation, recent diagnosis of pulmonary nodules and mass. She states she follows with a user acceptance tester at [facility]. She has been having a raspy cough and shortness breath for last 2-3 months. She therefore has undergone workup with prior x-ray showing concern of pulmonary mass and therefore had outpatient CAT scan performed 10/15/2022. CAT scan showed multiple nodules concerning for malignancy. Additionally showed moderate pericardial effusion and pleural effusion. She went home however developed worsening dyspnea and therefore presented back to emergency department. EKG showed atrial fibrillation and patient and grandson unsure if this is something that is chronic. States she m ay have been on Xarelto in the past. No issues with hematochezia or melena. She was additionally having some heartburn sensation however currently improved. 10/18 Patient has a sitter at the bedside due to her dementia. She is on Lasix 40 mg every 12 hours which will be transitioned to oral. Echocardiogram is scheduled for today. Heart rate is in the 70s, conveyor monitor. Potassium 3.1, BUN 35 creatinine 1.32. 10/19 Patient remains with a sitter at the bedside secondary to her underlying dementia. Echocardiogram has been done this morning but report is pending. She is on oral Lasix. equipment monitor phototypesetting is atrial fibrillation with controlled rate. Heparin drip will be discontinued and patient will be started on eliquis 2.5 mg twice daily. 10/20 Echocardiogram reveals normal LV function, mild mitral regurgitation, possible mild aortic stenosis. We transitioned patient to eliquis yesterday and a prescription will be sent to her pharmacy today to check coverage. Patient remains in atrial fibrillation. Rate is controlled in the 60s and 70s. PHYSICAL EXAMINATION Vital signs reviewed. CONSTITUTIONAL: No apparent distress. HEENT: Head is normocephalic. Pupils are equal, round. Sclerae anicteric. Mucous membranes of the mouth are moist. No JVD. No carotid bruit. CHEST EXAMINATION: Rales and rhonchi throughout HEART EXAMINATION: Regular rate and rhythm. S1, S2 heard. No murmurs, gallops or rub. ABDOMEN: Soft, nontender. Positive bowel sounds. EXTREMITIES: 2+ peripheral pulses, no lower extremity edema and no calf tenderness. NEUROLOGIC EXAMINATION: Patient is awake, alert and oriented x3. ASSESSMENT 1. Acute on chronic respiratory failure 2. Acute on chronic heart failure, unclear systolic versus diastolic 3. Persistent atrial fibrillation, questionable history in the past 4. Pulmonary lymphadenopathy rule out malignancy 5. Pericardial effusion 6. dementia 7. Extremely hard of hearing PLAN Continue Lasix oral 40 mg twice daily, monitor I&O, daily weights, electrolytes and renal function Check 2-D echo, report is pending. Patient does have pericardial effusion and possible malignancy and possibility of malignant pericardial effusion. No significant signs or symptoms of tamponade. Eliquis prescriptions been sent to the pharmacy Follow-up on creatinine, stat BMP ordered. Patient is cleared for discharge from cardiology and may follow up with either Dr. Dash or her user acceptance tester at [facility] in the next week. Nurse practitioner note has been reviewed, I agree with documented findings and plan of care. Patient was seen and examined. Objective - Vital Signs Vital signs: Vital Signs Temp 97.8 F 10/20/22 04:00 Pulse 72 10/20/22 08:35 Resp 16 10/20/22 08:00 BP 132/81 10/20/22 08:00 Pulse Ox 96 10/20/22 08:00 FiO2 2 10/17/22 20:11 Intake & Output 10/19/22 10/20/22 10/20/22 18:59 06:59 18:59 Intake Total 604 Output Total 800 Balance 604 -800 Intake: Intake, IV Titration 250 Amount Heparin Sod,Pork in 0.45% 250 NaCl 25,000 unit In 0.45 % NaCl 1 250ml.bag @ 12 UNITS/KG/HR 8.437 mls/hr IV .Q24H [facility] Rx#: [id number] Oral 354 Output: Urine 800 Other: Voiding Method External Catheter External Catheter - Labs CBC & Chem 7: 10/19/22 08:34 10/19/22 08:34 Labs: Abnormal Lab Results - Last 24 Hours (Table) 10/18/22 10/19/22 10/19/22 Range/Units 05:29 11:52 17:06 POC Glucose (mg/dL) 139 H 152 H (70-110) mg/dL Methylmalonic Acid 0.53 H (<0.40) umol/L 10/19/22 Range/Units 20:40 POC Glucose (mg/dL) 149 H (70-110) mg/dL Methylmalonic Acid (<0.40) umol/L
[2022-10-20 13:24] LABS: Calcium 8.9 mg/dL (8.4-10.2); Potassium 3.2 mmol/L (3.5-5.1)
--- NOTE | 2022-10-20 15:23 | P.PN ---
Subjective Progress Note Date: 10/20/22 Principal diagnosis: Acute exacerbation of COPD 81-year-old female patient with known history of dementia. The patient lives with her daughter and son-in-law. The patient has been noted to have progressive worsening in shortness of breath. The patient was having too dyspnea, chest tightness and wheezing. She is an ex-smoker and she quit smoking approximately 6 years ago. She has had several visitation with her primary care physician ultimately she was given a CAT scan of the chest yesterday and the CAT scan showed COPD, small right-sided pleural effusion, small pericardial effusion anteriorly and posteriorly, and there was evidence of a fairly large subcarinal mass with heterogeneous density within the subcarinal opacity. This was measuring around 3.5 cm in size. There was another 2.2 cm mass in the proximal right hilum in addition to that there are other smaller mediastinal lymph nodes. The findings are highly suggestive of primary bronchogenic carcinoma. The patient has a 19 mm left thyroid nodule. At the time of my evaluation, the patient was unable to give me any history. She is having significant impairment in cognitive functions. However, it was obvious that she was actively bronchus spastic and wheezing congested. Her swallow mechanism is adequate. Creatinine was at 1.4 and improved with hydration and is down to 1.1. The white supposito ry 0.8 with a hemoglobin of 14 and the patient has a proBNP level of 8000, negative troponins, normal liver function tests. No angina. No palpitation. No chest pain. No other complaints otherwise for now. The patient was found to be in atrial fibrillation also. She hasn't. Hearing. She is currently on IV heparin. In the management of atrial fibrillations per cardiology. She was given Lasix. The patient is seen today 10/18/2022 in follow-up on the selective care unit. She is currently resting comfortably in bed. Awake and alert in no acute distress. Alert and oriented times one. Her family is at the bedside. Currently maintaining O2 saturations in the upper 90s on 3 L/m per nasal cannula. Afebrile. Hemodynamically stable. She is continued on DuoNeb inhalations, IV Solu-Medrol. Antibiotics in the form of Levaquin. Currently on a heparin drip. Continues to be diuresed. Remains in a -1.2 L balance. Reevaluated today on 10/19/2022, patient is resting in bed, her daughter is at bedside, breathing a bit better compared to yesterday, nonetheless she continues to have intermittent cough and wheezing, patient is on broken dilators, antibiotics, steroids, and she is also on diuretics. Feeling a bit better, but nonetheless she remains symptomatic. CBC is relatively normal lites are normal BUN is 46 creatinine 1.5, rising compared to yesterday creatinine was 1.3 Reevaluated today on , patient is improving, nonetheless she continues to have intermittent cough and wheezing. Patient seems to be quite comfortable, she remains on bronchodilators, steroids, she is also on diuretics, patient was cleared for discharge by cardiology, I believe pulmonary-short patient could be considered for discharge planning in the next 24 hours. In the meantime continu e to optimize her pulmonary status. As far as her presumptive lung mass and lymphadenopathy, I believe the patient is not a great candidate for any intervention, and after discussing the findings with her daughter she seems to be inclined to consider no biopsies. Objective - Vital Signs Vital signs: Vital Signs Temp 97.8 F 10/20/22 04:00 Pulse 66 10/20/22 12:00 Resp 16 10/20/22 12:00 BP 113/71 10/20/22 12:00 Pulse Ox 95 10/20/22 12:00 FiO2 2 10/17/22 20:11 Intake & Output 10/19/22 10/20/22 10/20/22 18:59 06:59 18:59 Intake Total 604 240 Output Total 800 Balance 604 -800 240 Intake: Intake, IV Titration 250 Amount Heparin Sod,Pork in 0.45% 250 NaCl 25,000 unit In 0.45 % NaCl 1 250ml.bag @ 12 UNITS/KG/HR 8.437 mls/hr IV .Q24H [facility] Rx#: [id number] Oral 354 240 Output: Urine 800 Other: Voiding Method External Catheter External Catheter External Catheter - Exam Physical Exam: Revealed an 81-year-old female confused on room air Head: Atraumatic, normocephalic. HEENT:[Neck is supple.] [No neck masses.] [No thyromegaly.] [No JVD.] Chest: [Occasional rhonchi and wheezing noted bilaterally Cardiac Exam: Irregular irregular rhythm. [Normal S1 and S2, no S3 gallop, no murmur.] Abdomen: [Soft, nontender, no megaly, no rebound, no guarding, normal bowel sounds.] Extremities: [No clubbing, no edema, no cyanosis.] Neurological Exam: Pleasantly demented, otherwise no gross focal deficits. Psychiatric: Demented, normal affect. Follows simple instructions, hard of hearing - Labs CBC & Chem 7: 10/19/22 08:34 10/20/22 12:59 Labs: Abnormal Lab Results - Last 24 Hours (Table) 10/18/22 10/19/22 10/19/22 Range/Units 05:29 17:06 20:40 Potassium (3.5-5.1) mmol/L BUN (7-17) mg/dL Creatinine (0.52-1.04) mg/dL Glucose (74-99) mg/dL POC Glucose (mg/dL) 152 H 149 H (70-110) mg/dL Methylmalonic Acid 0.53 H (<0.40) umol/L 10/20/22 10/20/22 Range/Units 11:57 12:59 Potassium 3.2 L (3.5-5.1) mmol/L BUN 60 H (7-17) mg/dL Creatinine 1.75 H (0.52-1.04) mg/dL Glucose 250 H (74-99) mg/dL POC Glucose (mg/dL) 178 H (70-110) mg/dL Methylmalonic Acid (<0.40) umol/L Assessment and Plan Assessment: Acute COPD exacerbation Right hilar mass measuring 2.2 cm in addition to a fairly large subcarinal lymph node/mass measuring 3.5 cm in size, highly suggestive of primary bronchogenic cancer of the lung Small right-sided pleural effusion Small to moderate-sized pericardial effusion Shortness of breath secondary to above Chronic smoker and the patient quit smoking approximately 6 years ago Chronic atrial fibrillation Suspect congestion heart failure with an elevated proBNP level, responding to diuretics Acute kidney injury, recovering Advanced dementia with impairment of the cognitive functions. Impaired hearing Hypertension Recommendation: Continue bronchodilators. Continue diuretics. Consider discharge planning in the next 24 hours. The daughter seems to be inclined to consider conservative measures and no diagnostic procedures/bronchoscopy. DO NOT RESUSCITATE CODE STATUS. Will clear for discharge in 24 Time with Patient: Less than 30
[2022-10-20 16:52] LABS: Glucose,Whole Blood 132 mg/dL (70-110)
--- NOTE | 2022-10-20 18:09 | P.PN ---
Subjective Progress Note Date: 10/20/22 Hospital course: Patient is a very pleasant 81-year-old female with a past medical history of hypertension, hyperlipidemia, dementia, and hypothyroidism. She presented to the emergency department on 10/17/22 with a chief complaint of worsening cough, congestion, and "rattling in her chest" over the past month. Information was reportedly obtained from family at bedside at this time, as patient is unable to provide history due to dementia and baseline mentation of A&O 1-2. Patient underwent full evaluation in the emergency department. She was found to test positive for influenza A and upon arrival was in respiratory distress with respiratory rate of 45 and SpO2 of 94% on room air.. Chest x-ray revealing cardiomegaly with mild pulmonary fibrotic changes and concerns for underlying mild heart failure. EKG showing atrial fibrillation with a controlled ventricular rate of 77 bpm. CBC revealed normocytic anemia with hemoglobin of 10.4. ABG revealed compensated respiratory acidosis with pH of 7.42, pO2 of 77, bicarb of 26, and total CO2 of 27. BMP reveals slightly elevated renal function with BUN of 32, creatinine of 1.17, and GFR 44. Troponin was negative at less than 0.012 and pro-BMP 8080. Pro-calcitonin slightly elevated at 0.38. Secon yousuf to new findings of atrial fibrillation with no documented or reported history, patient was started on heparin infusion. Patient was admitted under our services with consultation to cardiology and pulmonology. Physical exam: Patient was seen and evaluated at bedside this morning. Sitter remains at bedside for safety. Patient remains at baseline mentation alert to person and place but confused to time and situation. Respirations are even, regular, and unlabored on room air with SpO2 of 95%. Lung sounds showing continued improvement,minimal rhonchi Improving with cough. Patient denies having any pain or complaints. Had long discussion with patient's daughter Laura regarding plan of care and plans for discharge. Consult placed to palliative/hospice care for further discussion as patient's daughter contemplating taking her mother home on palliative versus hospice care and would like more information. They have chosen not to test or treat presumed lung cancer. Plan is for discharge home likely tomorrow morning after patient's family can discuss with palliative care and make final determination regarding hospice versus palliative treatment. Vital signs reviewed and stable. General: Nontoxic, no distress and appears stated age. Derm: Skin warm and dry, normal coloration for ethnicity. Head: Atraumatic, normocephalic and symmetric. Hard of hearing. Eyes: EOMs intact, no lid lag, and anicteric sclera Mouth: no lip lesions, mucus membranes moist Cardiovascular: regular rate and rhythm with normal S1S2, systolic murmur, p ositive posterior tibial pulses bilaterally, and cap refill < 2 seconds. Lungs: Respirations even, regular, and unlabored on 3 L O2 via nasal cannula.. Minimal rhonchi, improves with cough diffuse coarse rhonchi bilaterally.Abdominal: soft, nontender to palpation, no guarding, no appreciable organomegaly Ext: ROM intact. No gross muscle atrophy, no edema, no contractures Neuro: Speech clear, face symmetrical with no noted focal neuro deficits. GCS 14. Psych: Alert and oriented to person only. Assessment and Plan of Care: Acute on chronic respiratory failure with hypoxia secondary to COPD exacerbation resulting from influenza A Acute COPD exacerbation Influenza A Right hilar mass measuring 2.2 cm in addition to a fairly large subcarinal lymph node/mass measuring 3.5 cm in size, highly suspicious for lung cancer Small right-sided pleural effusion Small to moderate-sized pericardial effusion -Oxygenation to be administered and titrated as needed to maintain SPO2 equal to or greater than 92% -Telemetry monitoring. -Monitor Pulse-oximetry -Duonebs as needed for SOB and/or wheezing -Incentive Spirometry -Steroids: Solu-Medrol -Patient would not benefit from antiviral medications such as Tamiflu as reported symptoms started approximately 3-4 weeks ago. -Pulmonology following Persistent atrial fibrillation, appears to be new onset atrial fib with a controlled ventricular rate Acute heart failure, unclear type pending echocardiogram completion. Hypertension Hyperlipidemia -Cardiology following, appreciate further recommendations -Telemetry monitoring -ProBNP 8080. -Daily weights -Close monitoring of I's and O's -Cardiac diet -Lasix -Continue cardiac medication regimen with Aspirin, atorvastatin, amlodipine and atenolol -Continuation of heparin infusion pending further recommendations from cardiology. -Continued close monitoring of electrolytes while diuresing. -Echocardiogram Dementia -Provide safe and supportive care with redirection and assistance as needed. -Continue daily medication regimen with Aricept. CODE STATUS: DO NOT RESUSCITATE/DO NOT INTUBATE DVT prophylaxis: Heparin infusion Discussed with: Patient, RN, and health safety and environment manager at bedside Anticipated discharge date: Likely tomorrow morning Anticipated discharge place: Return home with daughter with home care palliative versus hospice A total of 35 minutes was spent on the care of this complex patient more than 50% of the time was spent in counseling and care coordination. I reviewed the documentation as provided by the QUEENIE above, who is the original author of this note. I agree with the documented assessment and plan, with the following changes: none Objective - Vital Signs Vital signs: Vital Signs Temp 97.8 F 10/20/22 04:00 Pulse 72 10/20/22 08:35 Resp 16 10/20/22 08:00 BP 132/81 10/20/22 08:00 Pulse Ox 96 10/20/22 08:00 FiO2 2 10/17/22 20:11 Intake & Output 10/19/22 10/20/22 10/20/22 18:59 06:59 18:59 Intake Total 604 Output Total 800 Balance 604 -800 Intake: Intake, IV Titration 250 Amount Heparin Sod,Pork in 0.45% 250 NaCl 25,000 unit In 0.45 % NaCl 1 250ml.bag @ 12 UNITS/KG/HR 8.437 mls/hr IV .Q24H [facility] Rx#: [id number] Oral 354 Output: Urine 800 Other: Voiding Method External Catheter External Catheter - Labs CBC & Chem 7: 10/19/22 08:34 10/21/22 10:03 Labs: Abnormal Lab Results - Last 24 Hours (Table) 10/18/22 10/19/22 10/19/22 Range/Units 05:29 08:34 11:52 BUN 46 H (7-17) mg/dL Creatinine 1.59 H (0.52-1.04) mg/dL Glucose 117 H (74-99) mg/dL POC Glucose (mg/dL) 139 H (70-110) mg/dL Magnesium 2.4 H (1.6-2.3) mg/dL Methylmalonic Acid 0.53 H (<0.40) umol/L 10/19/22 10/19/22 Range/Units 17:06 20:40 BUN (7-17) mg/dL Creatinine (0.52-1.04) mg/dL Glucose (74-99) mg/dL POC Glucose (mg/dL) 152 H 149 H (70-110) mg/dL Magnesium (1.6-2.3) mg/dL Methylmalonic Acid (<0.40) umol/L
[2022-10-20] MEDS ORDERED: POTASSIUM BICARBONATE/CIT AC 20 MEQ TABLET.EFF PO ONE (18:30)
[2022-10-20 20:04] LABS: Glucose,Whole Blood 193 mg/dL (70-110)
[2022-10-20] MEDS: MIRTAZAPINE 15 MG TAB PO SCH (20:19)
[2022-10-20] MEDS: MELATONIN 5 MG TABLET PO PRN (20:19)
[2022-10-20] MEDS: ATORVASTATIN 10 MG TAB PO SCH (20:19)
[2022-10-20] MEDS: LATANOPROST 0.005% OPHTH DROPS 2.5 ML BTL BOTH EYES SCH ×2 (20:20→20:21)
[2022-10-20] MEDS: TIMOLOL 0.5% OPHTH DROPS 5 ML BTL BOTH EYES SCH (23:51)
[2022-10-21] MEDS: IPRATROPIUM-ALBUTEROL 3 ML NEB INHALATION SCH ×6 (03:23→20:18)
[2022-10-21 06:14] LABS: Glucose,Whole Blood 111 mg/dL (70-110)
[2022-10-21] MEDS: methylPREDNISolone SOD SUCCI 125 MG/2 ML VIAL IV SCH ×3 (06:55→21:02)
[2022-10-21] MEDS: INSULIN ASPART (NovoLOG) 100 UNIT/ML VIAL SQ SCH ×4 (06:58→20:58)
[2022-10-21] MEDS: amLODIPine 2.5 MG TAB PO SCH ×2 (08:53→12:03)
[2022-10-21] MEDS: atenoloL 50 MG TAB PO SCH ×2 (08:53→12:03)
[2022-10-21] MEDS: SERTRALINE 100 MG TAB PO SCH ×2 (08:53→12:04)
[2022-10-21] MEDS: FUROSEMIDE 40 MG TAB PO SCH ×2 (08:53→12:03)
[2022-10-21] MEDS: MONTELUKAST 10 MG TAB PO SCH ×2 (08:53→12:03)
[2022-10-21] MEDS: APIXABAN 2.5 MG TABLET PO SCH ×3 (08:53→21:04)
[2022-10-21] MEDS: DONEPEZIL 5 MG TAB PO SCH ×2 (08:54→12:03)
[2022-10-21 11:04] LABS: Calcium 9.4 mg/dL (8.4-10.2); Potassium 3.5 mmol/L (3.5-5.1)
[2022-10-21 12:10] LABS: Glucose,Whole Blood 103 mg/dL (70-110)
--- NOTE | 2022-10-21 13:50 | P.PN ---
Subjective Progress Note Date: 10/21/22 Principal diagnosis: Acute exacerbation of COPD 81-year-old female patient with known history of dementia. The patient lives with her daughter and son-in-law. The patient has been noted to have progressive worsening in shortness of breath. The patient was having too dyspnea, chest tightness and wheezing. She is an ex-smoker and she quit smoking approximately 6 years ago. She has had several visitation with her primary care physician ultimately she was given a CAT scan of the chest yesterday and the CAT scan showed COPD, small right-sided pleural effusion, small pericardial effusion anteriorly and posteriorly, and there was evidence of a fairly large subcarinal mass with heterogeneous density within the subcarinal opacity. This was measuring around 3.5 cm in size. There was another 2.2 cm mass in the proximal right hilum in addition to that there are other smaller mediastinal lymph nodes. The findings are highly suggestive of primary bronchogenic carcinoma. The patient has a 19 mm left thyroid nodule. At the time of my evaluation, the patient was unable to give me any history. She is having significant impairment in cognitive functions. However, it was obvious that she was actively bronchus spastic and wheezing congested. Her swallow mechanism is adequate. Creatinine was at 1.4 and improved with hydration and is down to 1.1. The white supposito ry 0.8 with a hemoglobin of 14 and the patient has a proBNP level of 8000, negative troponins, normal liver function tests. No angina. No palpitation. No chest pain. No other complaints otherwise for now. The patient was found to be in atrial fibrillation also. She hasn't. Hearing. She is currently on IV heparin. In the management of atrial fibrillations per cardiology. She was given Lasix. The patient is seen today 10/18/2022 in follow-up on the selective care unit. She is currently resting comfortably in bed. Awake and alert in no acute distress. Alert and oriented times one. Her family is at the bedside. Currently maintaining O2 saturations in the upper 90s on 3 L/m per nasal cannula. Afebrile. Hemodynamically stable. She is continued on DuoNeb inhalations, IV Solu-Medrol. Antibiotics in the form of Levaquin. Currently on a heparin drip. Continues to be diuresed. Remains in a -1.2 L balance. Reevaluated today on 10/19/2022, patient is resting in bed, her daughter is at bedside, breathing a bit better compared to yesterday, nonetheless she continues to have intermittent cough and wheezing, patient is on broken dilators, antibiotics, steroids, and she is also on diuretics. Feeling a bit better, but nonetheless she remains symptomatic. CBC is relatively normal lites are normal BUN is 46 creatinine 1.5, rising compared to yesterday creatinine was 1.3 Reevaluated today on 10/20/2022, patient is improving, nonetheless she continues to have intermittent cough and wheezing. Patient seems to be quite comfortable, she remains on bronchodilators, steroids, she is also on diuretics, patient was cleared for discharge by cardiology, I believe pulmonary-short patient could be considered for discharge planning in the next 24 hours. In the meantime contin ue to optimize her pulmonary status. As far as her presumptive lung mass and lymphadenopathy, I believe the patient is not a great candidate for any intervention, and after discussing the findings with her daughter she seems to be inclined to consider no biopsies. Reevaluated today on 10/21/22, patient is feeling better, she sounds better, hence I will clear the patient to be discharged home and follow up on outpatient basis, she could have follow-up with Dr. Gonzalez basic metabolic profile is relatively unremarkable, BUN is 58 creatinine 1.76, may need less diuretics this is being addressed by cardiology Objective - Vital Signs Vital signs: Vital Signs Temp 97.7 F 10/21/22 04:00 Pulse 80 10/21/22 12:46 Resp 15 10/21/22 12:06 BP 113/74 10/21/22 12:06 Pulse Ox 90 L 10/21/22 12:06 FiO2 2 10/17/22 20:11 Intake & Output 10/20/22 10/21/22 10/21/22 18:59 06:59 18:59 Intake Total 360 Balance 360 Weight 70.8 kg Intake: Oral 360 Other: Voiding Method External Catheter Bedside Commode Bedside Commode - Exam Physical Exam: Revealed an 81-year-old female confused on room air Head: Atraumatic, normocephalic. HEENT:[Neck is supple.] [No neck masses.] [No thyromegaly.] [No JVD.] Chest: [Minimal fine crackles at the bases Cardiac Exam: Irregular irregular rhythm. [Normal S1 and S2, no S3 gallop, no murmur.] Abdomen: [Soft, nontender, no megaly, no rebound, no guarding, normal bowel sounds.] Extremities: [No clubbing, no edema, no cyanosis.] Neurological Exam: Pleasantly demented, otherwise no gross focal deficits. Psychiatric: Demented, normal affect. Follows simple instructions, hard of hearing - Labs CBC & Chem 7: 10/19/22 08:34 10/21/22 10:03 Labs: Abnormal Lab Results - Last 24 Hours (Table) 10/20/22 10/20/22 10/21/22 Range/Units 16:47 20:02 06:02 BUN (7-17) mg/dL Creatinine (0.52-1.04) mg/dL Glucose (74-99) mg/dL POC Glucose (mg/dL) 132 H 193 H 111 H (70-110) mg/dL 10/21/22 Range/Units 10:03 BUN 58 H (7-17) mg/dL Creatinine 1.76 H (0.52-1.04) mg/dL Glucose 101 H (74-99) mg/dL POC Glucose (mg/dL) (70-110) mg/dL Assessment and Plan Assessment: Acute COPD exacerbation Right hilar mass measuring 2.2 cm in addition to a fairly large subcarinal lymph node/mass measuring 3.5 cm in size, highly suggestive of primary bronchogenic cancer of the lung Small right-sided pleural effusion Small to moderate-sized pericardial effusion Shortness of breath secondary to above Chronic smoker and the patient quit smoking approximately 6 years ago Chronic atrial fibrillation Suspect congestion heart failure with an elevated proBNP level, responding to diuretics Acute kidney injury, recovering Advanced dementia with impairment of the cognitive functions. Impaired hearing Hypertension Recommendation: Continue bronchodilators. Continue diuretics. Will clear the patient for discharge if cleared by other consultants/cardiology Follow-up on outpatient basis with Dr. Gonzalez or myself DO NOT RESUSCITATE CODE STATUS. Long-term prognosis is definitely poor and guarded, however findings on the CT of the chest are highly suspicious for bronchogenic carcinoma nonetheless the patient is not a great candidate for intervention Time with Patient: Less than 30
--- NOTE | 2022-10-21 15:17 | PN ---
PROGRESS NOTE SUBJECTIVE: Rose Marie is an 81-year-old lady, who is admitted to hospital with acute COPD exacerbation, has a right hilar mass, small right-sided pleural effusion and pericardial effusion with permanent atrial fibrillation. She has dementia and is a poor historian. This morning, she is actually sleeping. OBJECTIVE: VITAL SIGNS: Heart rate is 72 beats per minute, blood pressure is 128/79, respiratory rate is 18, O2 saturation is 95%. NECK: There is no jugular venous distention. CHEST: Reveals diminished air entry at the bases. Occasional rhonchi. HEART: Reveals first and second heart sounds, irregular rhythm, and a systolic murmur at the apex. ABDOMEN: Soft. EXTREMITIES: Reveals 1+ edema. LABORATORY DATA: Labs show that the potassium was 3.2, BUN is 60, creatinine is 1.7. An echocardiogram showed normal LV systolic function with mild aortic stenosis without any pericardial effusion. ASSESSMENT: 1. Acute on chronic respiratory failure. 2. Persistent atrial fibrillation. 3. Pulmonary lymphadenopathy. 4. Dementia. 5. Intravascular volume depletion. PLAN: I am going to increase the dose of Lasix at this time to 40 mg daily. Continue the Eliquis and rest of her medications. We will see the patient on a p.r.n. basis. MMODL / IJN: [id number] /
--- NOTE | 2022-10-21 16:18 | P.PN ---
Subjective Progress Note Date: 10/21/22 Hospital course: Patient is a very pleasant 81-year-old female with a past medical history of hypertension, hyperlipidemia, dementia, and hypothyroidism. She presented to the emergency department on 10/17/22 with a chief complaint of worsening cough, congestion, and "rattling in her chest" over the past month. Information was reportedly obtained from family at bedside at this time, as patient is unable to provide history due to dementia and baseline mentation of A&O 1-2. Patient underwent full evaluation in the emergency department. She was found to test positive for influenza A and upon arrival was in respiratory distress with respiratory rate of 45 and SpO2 of 94% on room air.. Chest x-ray revealing cardiomegaly with mild pulmonary fibrotic changes and concerns for underlying mild heart failure. EKG showing atrial fibrillation with a controlled ventricular rate of 77 bpm. CBC revealed normocytic anemia with hemoglobin of 10.4. ABG revealed compensated respiratory acidosis with pH of 7.42, pO2 of 77, bicarb of 26, and total CO2 of 27. BMP reveals slightly elevated renal function with BUN of 32, creatinine of 1.17, and GFR 44. Troponin was negative at less than 0.012 and pro-BMP 8080. Pro-calcitonin slightly elevated at 0.38. Secon yousuf to new findings of atrial fibrillation with no documented or reported history, patient was started on heparin infusion. Patient was admitted under our services with consultation to cardiology and pulmonology. Palliative care consult was placed secondary to right hilar mass. Family meeting with palliative care later today to discuss hospice versus palliative care as they do not wish to proceed with further testing or treatment of suspicious lung cancer. Vital signs stable. Physical exam: Patient was seen and evaluated at bedside this morning. Family meeting with palliative care as scheduled today at 12:30. Patient denies any other complain ts at this time. RN reports patient refused oral medications this morning. Patient remains alert to person only. Vital signs reviewed and stable. General: Nontoxic, no distress and appears stated age. Derm: Skin warm and dry, normal coloration for ethnicity. Head: Atraumatic, normocephalic and symmetric. Hard of hearing. Eyes: EOMs intact, no lid lag, and anicteric sclera Mouth: no lip lesions, mucus membranes moist Cardiovascular: regular rate and rhythm with normal S1S2, systolic murmur, positive posterior tibial pulses bilaterally, and cap refill < 2 seconds. Lungs: Respirations even, regular, and unlabored on 3 L O2 via nasal cannula.. Minimal rhonchi, improves with cough diffuse coarse rhonchi bilaterally.Abdominal: soft, nontender to palpation, no guarding, no appreciable organomegaly Ext: ROM intact. No gross muscle atrophy, no edema, no contractures Neuro: Speech clear, face symmetrical with no noted focal neuro deficits. GCS 14. Psych: Alert and oriented to person only. Assessment and Plan of Care: Acute on chronic respiratory failure with hypoxia secondary to COPD exacerbation resulting from influenza A Acute COPD exacerbation Influenza A Right hilar mass measuring 2.2 cm in addition to a fairly large subcarinal lymph node/mass measuring 3.5 cm in size, highly suspicious for lung cancer Small right-sided pleural effusion Small to moderate-sized pericardial effusion -Oxygenation to be administered and titrated as needed to maintain SPO2 equal to or greater than 92% -Telemetry monitoring. -Monitor Pulse-oximetry -Duonebs as needed for SOB and/or wheezing -Incentive Spirometry -Steroids: Solu-Medrol -Patient would not benefit from antiviral medications such as Tamiflu as reported symptoms started approximately 3-4 weeks ago. -Pulmonology following Persistent atrial fibrillation, appears to be new onset atrial fib with a controlled ventricular rate Acute heart failure, unclear type pending echocardiogram completion. Hypertension Hyperlipidemia -Cardiology following, appreciate further recommendations -Telemetry monitoring -ProBNP 8080. -Daily weights -Close monitoring of I's and O's -Cardiac diet -Lasix -Continue cardiac medication regimen with Aspirin, atorvastatin, amlodipine and atenolol -Continuation of heparin infusion pending further recommendations from cardiology. -Continued close monitoring of electrolytes while diuresing. -Echocardiogram Dementia -Provide safe and supportive care with redirection and assistance as needed. -Continue daily medication regimen with Aricept. CODE STATUS: DO NOT RESUSCITATE/DO NOT INTUBATE DVT prophylaxis: Heparin infusion Discussed with: Patient, RN, and safety specialist at bedside Anticipated discharge date: Within the next [address]: Return home with daughter with home care palliative versus hospice A total of 33 minutes was spent on the care of this complex patient more than 50% of the time was spent in counseling and care coordination. I reviewed the documentation as provided by the QUEENIE above, who is the original author of this note. I agree with the documented assessment and plan, with the following changes: none Objective - Vital Signs Vital signs: Vital Signs Temp 97.7 F 10/21/22 04:00 Pulse 72 10/21/22 04:00 Resp 18 10/21/22 04:00 BP 128/79 10/21/22 04:00 Pulse Ox 94 L 10/21/22 04:00 FiO2 2 10/17/22 20:11 Intake & Output 10/20/22 10/21/22 10/21/22 18:59 06:59 18:59 Intake Total 360 Balance 360 Weight 70.8 kg Intake: Oral 360 Other: Voiding Method External Catheter Bedside Commode - Labs CBC & Chem 7: 10/19/22 08:34 10/21/22 10:03 Labs: Abnormal Lab Results - Last 24 Hours (Table) 10/20/22 10/20/22 10/20/22 Range/Units 11:57 12:59 16:47 Potassium 3.2 L (3.5-5.1) mmol/L BUN 60 H (7-17) mg/dL Creatinine 1.75 H (0.52-1.04) mg/dL Glucose 250 H (74-99) mg/dL POC Glucose (mg/dL) 178 H 132 H (70-110) mg/dL 10/20/22 10/21/22 Range/Units 20:02 06:02 Potassium (3.5-5.1) mmol/L BUN (7-17) mg/dL Creatinine (0.52-1.04) mg/dL Glucose (74-99) mg/dL POC Glucose (mg/dL) 193 H 111 H (70-110) mg/dL
--- NOTE | 2022-10-21 16:39 | P.CONS ---
History of Present Illness - Reason for Consult Consult date: 10/21/22 Goals of care Requesting physician: Jan German - Chief Complaint Shortness of breath - History of Present Illness The patient is a 81-year-old female with history of dementia, hypertension and depression presented to emergency department on 10/17/22 because of worsening co ugh, congestion and rattling of the chest over the past month. History taken from grand son on the bedside, patient unable to provide history due to dementia. She was evaluated in the emergency department a few days ago, had chest CAT scan performed 10/15/2022 and that showed 8 mm nodule in the right upper lobe, moderate right pleural effusion, mediastinal and right hilar adenopathy, moderate pericardial effusion and cardiomegaly. These findings were suspicious for malignancy. According to her grandson at the bedside she has been having worsening nonproductive cough, dyspnea and chills for the past several weeks. She has also been experiencing retrosternal chest burning. No fevers. Grandson also stated that yesterday she had flushed and swollen face which is currently resolved. She has tested positive for influenza A. P.ulmonary is following. Review of Systems ROS unobtainable: due to mental status Constitutional: Reports as per HPI Past Medical History Past Medical History: Dementia, Hearing Disorder / Deafness, Hyperlipidemia, Hypertension, Thyroid Disorder History of Any Multi-Drug Resistant Organisms: None Reported Past Surgical History: Back Surgery, Orthopedic Surgery Past Anesthesia/Blood Transfusion Reactions: No Reported Reaction Past Psychological History: No Psychological Hx Reported Smoking Status: Former smoker Past Alcohol Use History: None Reported Past Drug Use History: None Reported Medications and Allergies Home Medications Medication Instructions Recorded Confirmed Type Albuterol Inhaler [Ventolin Hfa 1 - 2 puff INHALATION RT-Q6H PRN 10/17/22 10/17/22 History Inhaler] Amoxic-Pot Clav 500-125 mg 1 tab PO TID 10/17/22 10/17/22 History [Augmentin 500-125 mg] Aspirin EC [Ecotrin Low Dose] 81 mg PO DAILY 10/17/22 10/17/22 History Donepezil [Aricept] 5 mg PO DAILY 10/17/22 10/17/22 History Latanoprost [Latanoprost 0.005%] 1 drop BOTH EYES HS 10/17/22 10/17/22 History Methenamine Hippurate 1 gm PO DAILY 10/17/22 10/17/22 History Mirtazapine 15 mg PO HS 10/17/22 10/17/22 History Montelukast [Singulair] 10 mg PO DAILY 10/17/22 10/17/22 History Sertraline [Zoloft] 100 mg PO DAILY 10/17/22 10/17/22 History Simvastatin [Zocor] 20 mg PO HS 10/17/22 10/17/22 History Timolol 0.5% Ophth Soln [Timoptic 1 drop BOTH EYES HS 10/17/22 10/17/22 History 0.5% Ophth Soln] amLODIPine [Norvasc] 7.5 mg PO DAILY 10/17/22 10/17/22 History atenoloL [Tenormin] 50 mg PO DAILY 10/17/22 10/17/22 History predniSONE 10 mg PO DAILY 10/17/22 10/17/22 History Apixaban [Eliquis] 2.5 mg PO BID #60 tab 10/20/22 Rx Allergies Allergy/AdvReac Type Severity Reaction Status Date / Time No Known Allergies Allergy Verified 10/17/22 11:49 Physical Exam Vitals: Vital Signs Temp Pulse Pulse Resp BP Pulse Ox 10/21/22 12:06 71 15 113/74 90 L 10/21/22 08:47 72 14 118/73 92 L 10/21/22 04:00 97.7 F 72 18 128/79 94 L 10/21/22 02:00 16 10/21/22 00:00 98 F 67 16 118/76 95 10/20/22 23:17 72 10/20/22 23:08 72 10/20/22 20:00 97.6 F 75 18 106/71 94 L 10/20/22 19:22 80 10/20/22 19:07 76 10/20/22 16:00 77 16 129/77 91 L 10/20/22 15:59 72 10/20/22 15:45 76 Intake and Output 10/20/22 10/21/22 10/21/22 22:59 06:59 14:59 Intake Total 120 Balance 120 Intake: Oral 120 Other: Voiding Method Bedside Commode Bedside Commode Weight 70.8 kg General: Well developed, well nourished. No acute distress. Appears stated age HEENT: Head is atraumatic, normocephalic. Very hard of hearing CV: Heart regular in rate and rhythm positive S1 and S2. Systolic murmur. Lungs: Clear to auscultation bilaterally. No wheezes rales or rhonchi. Respirations even and nonlabored. On 3 L nasal cannula. Nonproductive cough Abdomen/GI: Soft. .No guarding, rigidity, or abdominal tenderness. : No suprapubic tenderness. Musculoskeletal/ Extremities: CARBAJAL, No gross atrophy. + generalized weakness Vascular: Radial pulses equal. 2/4. No peripheral edema Skin: Warm and dry, No rash or lesions. Neurologic: Awake, oriented 1, person only Psychiatric: Appropriate mood and affect. Results CBC & Chem 7: 10/19/22 08:34 10/21/22 10:03 Labs: Abnormal Lab Results - Last 24 Hours (Table) 10/20/22 10/20/22 10/20/22 Range/Units 12:59 16:47 20:02 Potassium 3.2 L (3.5-5.1) mmol/L BUN 60 H (7-17) mg/dL Creatinine 1.75 H (0.52-1.04) mg/dL Glucose 250 H (74-99) mg/dL POC Glucose (mg/dL) 132 H 193 H (70-110) mg/dL 10/21/22 10/21/22 Range/Units 06:02 10:03 Potassium (3.5-5.1) mmol/L BUN 58 H (7-17) mg/dL Creatinine 1.76 H (0.52-1.04) mg/dL Glucose 101 H (74-99) mg/dL POC Glucose (mg/dL) 111 H (70-110) mg/dL Chest x-ray: report reviewed Assessment and Plan Assessment: Social * Occupation - she worked various jobs including at a [employer] * Marital status - * Children/grandchildren - 2 adult children, one son and one daughter * Residence - house * Who do you reside with - daughter and son-in-law * ETOH - no * Tobacco - former smoker, quit 7 years ago * Illicit drugs - no Spiritual/Cultural * A spiritual person - yes * Buddhist - Adventism * Belong to a particular sikhism - no * Beliefs a source of comfort and strength - yes * Holiness or cultural practices restrictions - no * EOL considerations/rituals -no Functional Assessment - * Able to walk independently - the patient was able to ambulate independently until 2 weeks ago * Assistive devices - Barnes and 4 wheeled walker * Able to use the bathroom independently - Yes * Continent - Yes * Require assistance bathing- no, she has a shower chair * Able to feed self - Yes * Who prepares meals - Daughter * How many meals a day eaten - 2-3 * Able to clean house/do laundry - A little * Transportation - Daughter provides transportation * Able to shop -No * Who manages medications -Daughter * Who manages finances -Daughter Psychological/Emotional * Dementia present - yes, advanced dementia * Insight and judgment - not intact * Depression - No * Suicidal thoughts - No * Good support system - Yes * Patients goals - comfort * Frequent hospitalizations - No * Desire to keep coming back to the hospital for treatment - no Symptoms * Pain - 0/10 * Fatigue - yes, continue PT and OT * SOB - Yes, continue DuoNeb, Solu-Medrol, Levaquin, Lasix, and Singulair * Insomnia - yes, continue melatonin * N/V - * Anxiety - * Depression - Yes, continue Zoloft * Confusion - Yes, continue Aricept * Agitation - Yes, continue Haldol when necessary * Hallucinations - No * Appetite/weight loss - No recent weight loss or appetite suppression, continue heart healthy diet * Dysphagia - No * Constipation - No * Incontinence - No * Itch - No * Cough - Yes, nonproductive cough Plan: Summary/Goals - the patient was resting in bed and appears comfortable with her daughter, Laura, at the bedside. The patient is extremely hard of hearing. Education provided regarding the patient lung nodules/mass and other chronic diseases including CHF and dementia. Discussed the likelihood of this being cancer. The patient and her daughter agree that they are not interested in pursuing a biopsy. The patient's daughter are not interested in pursuing aggressive treatment given the patient's advanced age and dementia. The patient's daughter is interested in providing her mother with the best quality of life for whatever time she has remaining. Palliative care and hospice philosophies and services explained in detail. The patient's daughter is interested in hospice. She is familiar with [facility], and would like to have an informational meeting. sales communications manager notified. Hospice consult placed. Recommendations - home with hospice Advanced Directives - none on file Code Status - DO NOT RESUSCITATE Thank you for this consultation Courtney Gonzalez [facility]- Palliative Care [facility] [id number] Email: [email or web address] Time with Patient: Greater than 30
[2022-10-21] MEDS: LEVOFLOXACIN 250 MG TAB PO SCH (16:49)
[2022-10-21 17:00] LABS: Glucose,Whole Blood 100 mg/dL (70-110)
[2022-10-21 20:10] LABS: Glucose,Whole Blood 133 mg/dL (70-110)
[2022-10-21] MEDS: TIMOLOL 0.5% OPHTH DROPS 5 ML BTL BOTH EYES SCH (21:03)
[2022-10-21] MEDS: ATORVASTATIN 10 MG TAB PO SCH (21:04)
[2022-10-21] MEDS: MIRTAZAPINE 15 MG TAB PO SCH (21:04)
[2022-10-22 00:28] VITALS: TEMP 98.7
[2022-10-22] MEDS: IPRATROPIUM-ALBUTEROL 3 ML NEB INHALATION SCH ×2 (01:01→04:39)
[2022-10-22] MEDS: methylPREDNISolone SOD SUCCI 125 MG/2 ML VIAL IV SCH ×2 (01:01→06:37)
[2022-10-22 06:21] LABS: Glucose,Whole Blood 149 mg/dL (70-110)
[2022-10-22 06:27] VITALS: BP 121/76; PULSE 78; RESP 16
[2022-10-22] MEDS: INSULIN ASPART (NovoLOG) 100 UNIT/ML VIAL SQ SCH (06:27)
--- NOTE | 2022-10-22 14:45 | P.DS ---
Providers Date of admission: 10/17/22 03:25 Expected date of discharge: 10/22/22 Attending physician: Helen Hearn MD Consults: 10/17/22 03:25 Consult Physician Routine Consulting Provider: Oscar Gonzalez Consult Reason/Comments: copd Do you want consulting provider notified?: Yes Consult Physician Routine Consulting Provider: Rony Barry Consult Reason/Comments: lungCA Do you want consulting provider notified?: Yes Consult Physician Routine Consulting Provider: Shad López Consult Reason/Comments: chf Do you want consulting provider notified?: Yes 10/20/22 13:13 Consult to Palliative Care Routine Consulting Provider: Courtney Gonzalez Consult Reason/Comments: Hospice vs palliative care, family would like discuss further Do you want consulting provider notified?: Yes Primary care physician: Norma Hidalgo Hospital Course: Discharge Diagnosis: Home with Hospice Care secondary to lung mass highly suggestive of primary bronchogenic cancer of the lung and advanced dementia Acute on chronic respiratory failure with hypoxia secondary to COPD exacerbation resulting from influenza A. Patient successfully weaned off of oxygen. Acute COPD exacerbation Influenza A Right hilar mass measuring 2.2 cm in addition to a fairly large subcarinal lymph node/mass measuring 3.5 cm in size, highly suspicious for lung cancer Small right-sided pleural effusion Small to moderate-sized pericardial effusion Persistent atrial fibrillation, appears to be new onset atrial fib with a controlled ventricular rate Acute heart failure, unclear type pending echocardiogram completion. Hypertension Hyperlipidemia Advance Dementia Hospital Course: Patient is a very pleasant 81-year-old female with a past medical history of hypertension, hyperlipidemia, dementia, and hypothyroidism. She presented to the emergency department on 10/17/22 with a chief complaint of worsening cough, congestion, and "rattling in her chest" over the past month. Information was reportedly obtained from family at bedside at this time, as patient is unable to provide history due to dementia and baseline mentation of A&O 1-2. Patient underwent full evaluation in the emergency department. She was found to test positive for influenza A and upon arrival was in respiratory distress with res piratory rate of 45 and SpO2 of 94% on room air.. Chest x-ray revealing cardiomegaly with mild pulmonary fibrotic changes and concerns for underlying mild heart failure. EKG showing atrial fibrillation with a controlled ventricular rate of 77 bpm. CBC revealed normocytic anemia with hemoglobin of 10.4. ABG revealed compensated respiratory acidosis with pH of 7.42, pO2 of 77, bicarb of 26, and total CO2 of 27. BMP reveals slightly elevated renal function with BUN of 32, creatinine of 1.17, and GFR 44. Troponin was negative at less than 0.012 and pro-BMP 8080. Pro-calcitonin slightly elevated at 0.38. Secondary to new findings of atrial fibrillation with no documented or reported history, patient was started on heparin infusion. Patient was admitted under our services with consultation to cardiology and pulmonology. Palliative care consult was placed secondary to right hilar mass. Family meeting with palliative care later today to discuss Hospice versus palliative care as they do not wish to proceed with further testing or treatment of suspicious lung cancer. Family made the decision to take patient home with hospice care. Arrangements have been set up for discharge home with [facility]. Physical exam: Vital signs reviewed and stable. General: Nontoxic, no distress and appears stated age. Derm: Skin warm and dry, normal coloration for ethnicity. Head: Atraumatic, normocephalic and symmetric. Hard of hearing. Eyes: EOMs intact, no lid lag, and anicteric sclera Mouth: no lip lesions, mucus membranes moist Cardiovascular: regular rate and rhythm with normal S1S2, systolic murmur, positive posterior tibial pulses bilaterally, and cap refill < 2 seconds. Lungs: Respirations even, regular, and unlabored on 3 L O2 via nasal cannula.. Minimal rhonchi, improves with cough diffuse coarse rhonchi bilaterally.Abdominal: soft, nontender to palpation, no guarding, no appreciable organomegaly Ext: ROM intact. No gross muscle atrophy, no edema, no contractures Neuro: Speech clear, face symmetrical with no noted focal neuro deficits. GCS 14. Psych: Alert and oriented to person only. A total of 32 minutes of time were spent preparing this complex discharge summary. Pt was discharged on 10/22/22 at 9:22 AM I reviewed the documentation as provided by the QUEENIE above, who is the original author of this note. I agree with the documented assessment and plan, with the following changes: none Plan - Discharge Summary Discharge Rx Participant: No New Discharge Prescriptions: New Apixaban [Eliquis] 2.5 mg PO BID #60 tab No Action Aspirin EC [Ecotrin Low Dose] 81 mg PO DAILY Montelukast [Singulair] 10 mg PO DAILY Amoxic-Pot Clav 500-125 mg [Augmentin 500-125 mg] 1 tab PO TID Latanoprost [Latanoprost 0.005%] 1 drop BOTH EYES HS Donepezil [Aricept] 5 mg PO DAILY amLODIPine [Norvasc] 7.5 mg PO DAILY Albuterol Inhaler [Ventolin Hfa Inhaler] 1 - 2 puff INHALATION RT-Q6H PRN PRN Reason: Shortness Of Breath Or Wheezing Timolol 0.5% Ophth Soln [Timoptic 0.5% Ophth Soln] 1 drop BOTH EYES HS Sertraline [Zoloft] 100 mg PO DAILY predniSONE 10 mg PO DAILY Mirtazapine 15 mg PO HS Methenamine Hippurate 1 gm PO DAILY atenoloL [Tenormin] 50 mg PO DAILY Simvastatin [Zocor] 20 mg PO HS Discharge Medication List Albuterol Inhaler [Ventolin Hfa Inhaler] 1 - 2 puff INHALATION RT-Q6H PRN 10/17/22 [History] Amoxic-Pot Clav 500-125 mg [Augmentin 500-125 mg] 1 tab PO TID 10/17/22 [History] Aspirin EC [Ecotrin Low Dose] 81 mg PO DAILY 10/17/22 [History] Donepezil [Aricept] 5 mg PO DAILY 10/17/22 [History] Latanoprost [Latanoprost 0.005%] 1 drop BOTH EYES HS 10/17/22 [History] Methenamine Hippurate 1 gm PO DAILY 10/17/22 [History] Mirtazapine 15 mg PO HS 10/17/22 [History] Montelukast [Singulair] 10 mg PO DAILY 10/17/22 [History] Sertraline [Zoloft] 100 mg PO DAILY 10/17/22 [History] Simvastatin [Zocor] 20 mg PO HS 10/17/22 [History] Timolol 0.5% Ophth Soln [Timoptic 0.5% Ophth Soln] 1 drop BOTH EYES HS 10/17/22 [History] amLODIPine [Norvasc] 7.5 mg PO DAILY 10/17/22 [History] atenoloL [Tenormin] 50 mg PO DAILY 10/17/22 [History] predniSONE 10 mg PO DAILY 10/17/22 [History] Apixaban [Eliquis] 2.5 mg PO BID #60 tab 10/20/22 [Rx] Follow up Appointment(s)/Referral(s): Brandt Dash DO [STAFF PHYSICIAN] - 1 Week (or Follow up with assistant case manager at [facility]) Norma Hidalgo DO [Primary Care Provider] - 1-2 days Discharge/Stand Alone Forms: Who Do I Call?, Community Resources, Help In The Home, Personal Ice House Supervisor Discharge Disposition: HOME WITH HOSPICE
== END 2022-10-22 09:46 | disposition still patient (30) | DRG 193 ==
LOC: EC 01:38 → 5NMEDONC 03:25 → 3SCARD 07:50
PROVIDERS: ADMIT Internal Medicine; ATTEND Internal Medicine
DX: J10.1 Influenza due to other identified influenza virus with other respiratory manifestations (principal); J96.21 Acute and chronic respiratory failure with hypoxia; I31.31 Malignant pericardial effusion in diseases classified elsewhere; N17.9 Acute kidney failure, unspecified; E87.29 Other acidosis; F03.A18 Unspecified dementia, mild, with other behavioral disturbance; J44.1 Chronic obstructive pulmonary disease with (acute) exacerbation; I48.21 Permanent atrial fibrillation; C34.11 Malignant neoplasm of upper lobe, right bronchus or lung; F03.A4 Unspecified dementia, mild, with anxiety; I11.0 Hypertensive heart disease with heart failure; I50.9 Heart failure, unspecified; E04.1 Nontoxic single thyroid nodule; E03.9 Hypothyroidism, unspecified; I27.20 Pulmonary hypertension, unspecified; D63.0 Anemia in neoplastic disease; E78.5 Hyperlipidemia, unspecified; H91.90 Unspecified hearing loss, unspecified ear; E86.9 Volume depletion, unspecified; Z66 Do not resuscitate; Z51.5 Encounter for palliative care; I08.3 Combined rheumatic disorders of mitral, aortic and tricuspid valves; R59.0 Localized enlarged lymph nodes; G47.00 Insomnia, unspecified; R12 Heartburn; R01.1 Cardiac murmur, unspecified; Z20.822 Contact with and (suspected) exposure to COVID-19; Z79.82 Long term (current) use of aspirin; Z79.899 Other long term (current) drug therapy; Z87.891 Personal history of nicotine dependence; Z79.01 Long term (current) use of anticoagulants
CPT/HCPCS: 36415; 36600; 71045; 71260; 80048; 80053; 82607; 82728; 82746; 82805; 83540; 83550; 83605; 83615; 83735; 83880; 83921; 84145; 84484; 85025; 85027; 85610; 85730; 87636; 93005; 93306; 94640; 94760; 96374; 96375; 99285